=== PATIENT | male | born 1985 | race Caucasian/White ===

== ENCOUNTER → 2017-02-28 | Outpatient (CLI) | payer OTHER ==
[2017-02-28 14:58] LABS: ALT 32 U/L (21-72); AST 28 U/L (17-59); Cholesterol 126 mg/dL (<200); Glucose 93 mg/dL (74-99); HDL Cholesterol 41 mg/dL (40-60); Triglycerides 73 mg/dL (<150)
[2017-02-28 17:01] LABS: Hemoglobin A1C 6.6 % (4.2-6.1)
== END | disposition home or self-care (01) ==
LOC: LABWHC1 13:58
PROVIDERS: ATTEND Internal Medicine Cardiovascular Disease
DX: E78.2 Mixed hyperlipidemia (principal)
CPT/HCPCS: 36415; 80061; 82947; 83036; 84450; 84460

== ENCOUNTER → 2022-09-01 | Outpatient (CLI) | payer OTHER ==
[2022-09-01 22:26] LABS: ALT 61 U/L (10-49); AST 50 U/L (14-35); African American GFR (CKD) 130.7 (60.0-200.0); Albumin 4.5 g/dL (3.8-4.9); Albumin/Globulin Ratio 2.11 (1.60-3.17); Alkaline Phosphatase 84 U/L (41-126); Bilirubin, Conjugated <0.20 mg/dL (0.20-0.40); Blood Urea Nitrogen 11.8 mg/dL (9.0-27.0); Carbon Dioxide 24.9 mmol/L (20.0-27.5); Chloride 99 mmol/L (96-109); Globulin 2.1 g/dL (1.6-3.3); Non-African American GFR(CKD) 112.8 (60.0-200.0); Potassium 4.8 mmol/L (3.5-5.5); Sodium 136 mmol/L (135-145); Total Protein 6.6 g/dL (6.2-8.2)
[2022-09-01 23:05] LABS: Chol/HDL Ratio 8.63 Ratio
== END | disposition home or self-care (01) ==
LOC: LABWHC1 11:37
PROVIDERS: ATTEND Internal Medicine
DX: Z00.00 Encounter for general adult medical examination without abnormal findings (principal); I10 Essential (primary) hypertension; E11.9 Type 2 diabetes mellitus without complications; E78.5 Hyperlipidemia, unspecified
CPT/HCPCS: 36415; 80051; 80061; 80076; 82565; 83036; 83721; 84520

== ENCOUNTER → 2023-08-04 | Outpatient (CLI) | payer OTHER ==
[2023-08-04 15:52] LABS: ALT 42 U/L (10-49); AST 39 U/L (14-35); Albumin 4.6 g/dL (3.8-4.9); Albumin/Globulin Ratio 2.09 Ratio (1.60-3.17); Alkaline Phosphatase 85 U/L (41-126); Bilirubin, Conjugated <0.20 mg/dL (0.20-0.40); Bilirubin,Unconjugated >0.40 mg/dL (0.20-1.00); Blood Urea Nitrogen 11.4 mg/dL (9.0-27.0); Chloride 100 mmol/L (96-109); Chol/HDL Ratio 4.47 Ratio; Globulin 2.2 g/dL (1.6-3.3); LDL Cholesterol,Calculated 47.6 mg/dL (0.0-131.0); Potassium 4.8 mmol/L (3.5-5.5); Sodium 137 mmol/L (135-145); Total Bilirubin 0.6 mg/dL (0.3-1.2); Total Protein 6.8 g/dL (6.2-8.2)
== END | disposition home or self-care (01) ==
LOC: LABWHC1 09:20
PROVIDERS: ATTEND Internal Medicine
DX: Z00.00 Encounter for general adult medical examination without abnormal findings (principal); I10 Essential (primary) hypertension; E11.9 Type 2 diabetes mellitus without complications; E66.9 Obesity, unspecified; E78.5 Hyperlipidemia, unspecified
CPT/HCPCS: 36415; 80051; 80061; 80076; 82565; 83036; 84520

== ENCOUNTER 2024-06-21 06:09 | Observation (INO) | payer OTHER ==
--- NOTE | 2024-06-21 06:18 | ED ---
Chest Pain HPI - General Chief Complaint: Chest Pain Stated Complaint: Chest Pain Time Seen by Provider: 06/21/24 06:18 Source: patient, RN notes reviewed Mode of arrival: wheelchair Limitations: no limitations - History of Present Illness Initial Comments: This is a 39-year-old male with a past medical history of hypertension, diabetes, atherosclerosis who presents emergency department chief complaint of a pressure and pain in his mid chest with radiation to his back that started approximately 4 AM today. States that his symptoms are accompanied by intermittent chills, nausea, shortness of breath. Patient has a history of MS in 2016 but denies stent placement. Denies current blood thinner use, history of DVT or PE, recent prolonged travel, swelling in his legs or pain in his calves. Patient follows with freelance data entry, Dr. Sandoval, outpatient testing scheduled in the next 2 weeks for stress test and echo. He states that his symptoms now he will similar as when he had his MS in 2016 but states that the symptoms of nausea and abdominal pain are new for him. He takes a daily 81 mg aspirin. - Related Data Home Medications Medication Instructions Recorded Confirmed Atorvastatin [Lipitor] 40 mg PO DAILY 06/21/24 06/21/24 Fenofibrate [Lofibra] 160 mg PO DAILY 06/21/24 06/21/24 Insulin Glargine,Hum.rec.anlog 16 units SQ QAM 06/21/24 06/21/24 [Toukathryn Edward Solostar] glipiZIDE [glipiZIDE ER] 10 mg PO BID 06/21/24 06/21/24 lisinopriL [Zestril] 10 mg PO DAILY 06/21/24 06/21/24 metFORMIN HCL [Glucophage] 500 mg PO TID 06/21/24 06/21/24 Previous Rx's Medication Instructions Recorded Isosorbide Mononitrate ER [Imdur] 30 mg PO DAILY #30 tab.er.24h 01/05/16 Metoprolol Tartrate [Lopressor] 25 mg PO BID #60 tab 01/05/16 Allergies Allergy/AdvReac Type Severity Reaction Status Date / Time cefaclor [From Ceclor] Allergy Rash/Hives Verified 06/21/24 09:35 Review of Systems ROS Statement: Those systems with pertinent positive or pertinent negative responses have been documented in the HPI. ROS Other: All systems not noted in ROS Statement are negative. Past Medical History Past Medical History: Diabetes Mellitus, Hypertension Additional Past Medical History / Comment(s): OBESITY History of Any Multi-Drug Resistant Organisms: None Reported Past Surgical History: Heart Catheterization Additional Past Anesthesia/Blood Transfusion Reaction / Comment(s): NO BLOOD TRANSFUSIONS OR ANESTHESIA. Past Psychological History: No Psychological Hx Reported, Depression Past Alcohol Use History: Occasional Past Drug Use History: None Reported - Past Family History Mother Family Medical History: Hypertension Father Family Medical History: Diabetes Mellitus General Exam Limitations: no limitations Course Vital Signs 06/21/24 06/21/24 06:10 09:54 Temperature 98 F Pulse Rate 100 96 Respiratory 18 17 Rate Blood Pressure 161/85 144/69 O2 Sat by Pulse 100 98 Oximetry Chest Pain MDM - MDM Was pt. sent in by a medical professional or institution (, PA, OFFICE SUPERVISOR, urgent care, hospital, or longterm...) When possible be specific @ -No Did you speak to anyone other than the patient for history (EMS, parent, family, police, friend...)? What history was obtained from this source @ -No Did you review nursing and triage notes (agree or disagree)? Why? @ -I reviewed and agree with nursing and triage notes Were old charts reviewed (outside hosp., previous admission, EMS record, old EKG, old radiological studies, urgent care reports/EKG's, longterm records)? Report findings @ -No old charts were reviewed Differential Diagnosis (chest pain, altered mental status, abdominal pain women, abdominal pain men, vaginal bleeding, weakness, fever, dyspnea, syncope, headache, dizziness, GI bleed, back pain, seizure, CVA, palpatations, mental health, musculoskeletal)? @ -Differential Chest Pain: Stable Angina, Unstable Angina, STEMI, NSTEMI Aortic Dissection, Pneumothorax, Musculoskeletal, Esophageal Spasm GERD, Cholecystitis, Pancreatitis, Zoster, this is not meant to be an all-inclusive list. EKG interpreted by me (3pts min.). @ -618 sinus rhythm with a ventricular rate of 98, parable 151, QRS 105, QTc 394. No acute signs of ischemia. X-rays interpreted by me (1pt min.). @ -cxr negative for acute cardiopulmonary process. CT interpreted by me (1pt min.). @ -CTA chest Limited timing of the contrast bolus with a couple small filling defects seen within the left upper lobe pulmonary arterial branches for pulmonary emboli cannot be excluded with no large saddle or central embolus seen U/S interpreted by me (1pt. min.). @ -Ultrasound revealed splenomegaly with underlying hepatic steatosis What testing was considered but not performed or refused? (CT, X-rays, U/S, labs)? Why? @ -None What meds were considered but not given or refused? Why? @ -None Did you discuss the management of the patient with other professionals (professionals i.e. , PA, OFFICE SUPERVISOR, lab, RT, psych nurse, director social welfare, department sales manager, teacher, foreign policy officer, family service caseworker)? Give summary @ -I spoke with [facility] hospitalist nurse practitioner, Dariela Corbett, regard to the patient's presentation with chest pain and laboratory workup thus far and recommend that he had be admitted for cardiology consultation. Patient is accepeted for admission. Was smoking cessation discussed for >3mins.? @ -No Was critical care preformed (if so, how long)? @ -No Were there social determinants of health that impacted care today? How? (Homelessness, low income, unemployed, alcoholism, drug addiction, transportation, low edu. Level, literacy, decrease access to med. care, group home, rehab)? @ -No Was there de-escalation of care discussed even if they declined (Discuss DNR or withdrawal of care, Hospice)? DNR status @ -No What co-morbidities impacted this encounter? (DM, HTN, Smoking, COPD, CAD, Cancer, CVA, ARF, Chemo, Hep., AIDS, mental health diagnosis, sleep apnea, morbid obesity)? @ -None Was patient admitted / discharged? Hospital course, mention meds given and route, prescriptions, significant lab abnormalities, going to OR and other pertinent info. @ -admitted. 39-year-old male presents with chest pain. My evaluation the patient he is in mild distress due to pain. Vitals are stable. Pain is not reproducible in the chest however he experiences right upper quadrant abdominal pain to palpation. States that he is feeling nauseous and nurse has informed me that the patient is an episode of emesis. Initially patient is provided with a 325 mg chewable tablet of aspirin, and sublingual nitro. On reevaluation, he states that his chest pain has began to subside he is now only experiencing a tightness rather than pain. CBC unremarkable, coagulation profile reveals a elevated D-dimer at 0.80 and mild transaminitis with an AST of 280, ALT 112. Troponin nonelevated less than 0.012, amylase and lipase within normal limits, elevated bilirubin at 1.9. Patient will be evaluated via CTA of the chest for elevated D-dimer and chest pain and shortness of breath. Additionally he will be sent for ultrasound imaging of the abdomen. On discussion with the patient he denies known history of elevated liver enzymes or diagnosis of fatty liver disease. Denies excessive alcohol use or Tylenol use. Patient will be started on low intensity statin with concern for possible left upper lobe pulmonary arterial branch deficits and will be admitted to internal medicine with cardiology on consult for chest pain. Echocardiogram ordered and trend p atient's cardiac enzymes. discussed with Dr. Steele Undiagnosed new problem with uncertain prognosis? @ -No Drug Therapy requiring intensive monitoring for toxicity (Heparin, Nitro, Ins ulin, Cardizem)? @ -No Were any procedures done? @ -No Diagnosis/symptom? @ -chest pain responsive to nitro, possible pulmonary filing arterial deficit, fatty liver disease Acute, or Chronic, or Acute on Chronic? @ -acute Uncomplicated (without systemic symptoms) or Complicated (systemic symptoms)? @ -complicated Side effects of treatment? @ -No Exacerbation, Progression, or Severe Exacerbation? @ -No Poses a threat to life or bodily function? How? (Chest pain, [place], MS, pneumonia, PE, COPD, DKA, ARF, appy, cholecystitis, CVA, Diverticulitis, Homicidal, Suicidal, threat to staff... and all critical care pts) @ -Yes, untreated ACS can lead to multiorgan system dysfunction and possible Disposition Clinical Impression: Chest pain Disposition: ADMITTED IP TO THIS HOSP Condition: Stable Decision to Admit Reason: Admit from EC Decision Date: 06/21/24 Decision Time: 09:38
[2024-06-21] MEDS: ASPIRIN 325 MG TAB PO STA (06:36)
[2024-06-21] MEDS: NITROGLYCERIN SL TABS 0.4 MG TAB SUBLINGUAL STA ×3 (06:36→06:51)
[2024-06-21 06:38] LABS: Basophils % (A) 0 %; Eosinophils # (A) 0.1 k/uL (0-0.7); Eosinophils % (A) 1 %; HCT 45.8 % (39.0-53.0); HGB 15.2 gm/dL (13.0-17.5); Lymphocytes % (A) 9 %; MCH 28.6 pg (25.0-35.0); MCHC 33.1 g/dL (31.0-37.0); MCV 86.3 fL (80.0-100.0); Mean Platelet Volume 7.9; Monocytes # (A) 0.2 k/uL (0-1.0); Monocytes % (A) 2 %; Neutrophils # (A) 9.8 k/uL (1.3-7.7); Neutrophils % (A) 87 %; Platelet Count 231 k/uL (150-450); RBC 5.31 m/uL (4.30-5.90); WBC 11.2 k/uL (3.8-10.6)
[2024-06-21] MEDS: ONDANSETRON 4 MG/2 ML VIAL IVP STA (06:49)
[2024-06-21 06:58] LABS: ALT 112 U/L (4-49); AST 280 U/L (17-59); African American GFR (CKD) >90 (>60 ml/min/1.73 sqM); Albumin 4.6 g/dL (3.5-5.0); Alkaline Phosphatase 86 U/L (38-126); Amylase 46 U/L (30-110); Anion Gap 11 mmol/L; Blood Urea Nitrogen 18 mg/dL (9-20); Calcium 9.8 mg/dL (8.4-10.2); Carbon Dioxide 24 mmol/L (22-30); Chloride 101 mmol/L (98-107); Glucose 202 mg/dL (74-99); Lipase 125 U/L (23-300); Magnesium 1.5 mg/dL (1.6-2.3); Non-African American GFR(CKD) >90 (>60 ml/min/1.73 sqM); Potassium 4.5 mmol/L (3.5-5.1); Sodium 136 mmol/L (137-145); Total Bilirubin 1.9 mg/dL (0.2-1.3); Total Protein 7.1 g/dL (6.3-8.2)
[2024-06-21 07:02] LABS: INR 0.9 (<1.2); Partial Thromboplastin Time 21.2 sec (22.0-30.0); Prothrombin Time 10.4 sec (10.0-12.5)
[2024-06-21 07:06] LABS: NT-Pro-B-Type Natriuretic Pept 43 pg/mL
--- NOTE | 2024-06-21 07:52 | XR ---
EXAMINATION TYPE: XR chest 2V DATE OF EXAM: 06/21/2024 COMPARISON: NONE HISTORY: Chest pain TECHNIQUE: Frontal and lateral views of the chest are obtained. FINDINGS: There is no focal air space opacity. No evidence for pneumothorax. No pleural effusion. The cardiac silhouette size is within normal limits. The osseous structures are grossly intact. IMPRESSION: 1. No acute cardiopulmonary process. [facility], , 06/21/2024 7:50 AM
--- NOTE | 2024-06-21 08:01 | CT ---
EXAMINATION TYPE: CT chest angio for PE DATE OF EXAM: 06/21/2024 COMPARISON: None HISTORY: pe CT DLP: 1023.1 mGycm CONTRAST: CT chest with contrast and 3D reconstruction with MIP imaging is performed with IV Contrast, patient injected with 100 mL of Isovue 370. Contrast-enhanced CT of the chest was performed through the course of the pulmonary arteries with jareth g and mediastinal window settings submitted. 3D reconstruction with MIP imaging was also performed. PULMONARY ARTERIES: Examination is limited by limited timing of the contrast bolus. There are couple small filling defects seen within left upper lobe pulmonary arterial branches for which I cannot excl ude small pulmonary emboli. Correlate clinically. No large saddle embolus or central embolus is seen. LUNGS: The lungs are clear and free of infiltrate. No evidence for atelectasis. No pulmonary nodule or mass is detected. No pleural effusion. MEDIASTINUM: Thoracic aorta is of normal caliber,however, evaluation is limited given timing of the contrast bolus. If there is concern for thoracic aortic pathology consider SARITHA. Correlate clinicall y . The heart is not enlarged. No evidence for mediastinal mass. No mediastinal lymph nodes greater than 1cm. HILAR STRUCTURES: No evidence for mass. No hilar lymph nodes greater than 1 cm. UPPER ABDOMEN: No significant abnormality is seen. IMPRESSION: 1. Examination is limited by limited timing of the contrast bolus. There are couple small filling de fects seen within left upper lobe pulmonary arterial branches for which I cannot exclude small pulmon hanh emboli. Correlate clinically. No large saddle embolus or central embolus is seen. [facility], , 06/21/2024 7:59 AM
--- NOTE | 2024-06-21 08:33 | US ---
EXAMINATION TYPE: US abdomen complete DATE OF EXAM: 06/21/2024 COMPARISON: CT 2023 CLINICAL INDICATION: Male, 39 years old with history of RUQ ab pain, nausea, elevated LFTs; TECHNIQUE: Grayscale and color Doppler imaging of the abdomen was performed. FINDINGS: EXAM MEASUREMENTS: Liver Length: 19.5 cm Gallbladder Wall: 0.3 cm CBD: 0.5 cm Spleen: 12.5 cm Right Kidney: 12.8 x 6.5 x 7.0 cm Left Kidney: 12.9 x 6.6 x 6.5 cm Difficult and limited study due to patient body habitus Pancreas: obscured by overlying midline bowel gas Liver: enlarged, attenuating, heterogeneous Gallbladder: borderline hydropic with borderline thickened wall Evidence for sonographic Reina's sign: no CBD: visualized portions wnl, limited by overlying bowel gas Spleen: wnl Right Kidney: wnl Left Kidney: wnl Upper IVC: wnl Abd Aorta: prox and mid portions obscured by overlying midline bowel gas, distal portion appears wnl The intrahepatic portion of the IVC and proximal abdominal aorta are within normal limits. There is no evidence of cholelithiasis. Common bile duct is unremarkable. The visualized portions of the kenny creas are homogenous. The spleen is unremarkable. Kidneys are symmetric and free of hydronephrosis. No renal lesions are seen. IMPRESSION: 1. Hepatomegaly with underlying hepatic steatosis. [facility], , 06/21/2024 8:30 AM
[2024-06-21] MEDS: HEPARIN SOD,PORK IN 0.45% NACL 25,000 UNIT in 0.45% NACL 1 250ML.BAG IV SCH (09:01)
[2024-06-21] MEDS: HEPARIN SODIUM 1,000 UN/ML (10ML VL) IV ONE (09:01)
[2024-06-21] MEDS ORDERED: NALOXONE 0.4 MG/ML 1 ML VIAL IV PRN (09:35)
[2024-06-21] MEDS ORDERED: ONDANSETRON 4 MG/2 ML VIAL IVP PRN (09:35)
[2024-06-21] MEDS ORDERED: MORPHINE SULFATE 4 MG/ML SYRINGE IV PRN (09:35)
--- NOTE | 2024-06-21 09:53 | P.HPIM ---
History of Present Illness History of present illness; 39-year-old male with a past medical history of hypertension, diabetes, hyperlipidemia presents with chest pain that started earlier this morning. Patient reports the chest pain was accompanied by interm ittent chills, nausea, and shortness of breath. Patient reports he has a history of OR in 2016 but denies having any stent placement. Patient also denies any current use of blood thinners, any history of DVT or PE, any recent prolonged travel, or swelling in his legs or pain in his calves. Patient reports he follows with children's tutor nursery Dr. Fermin and was scheduled for an appointment in 2 weeks for stress test and echo. Patient reports the symptoms are similar to when he had his first OR in 2016 with the only difference being that he now also has nausea and abdominal pain which is new for him. Patient reports he takes aspirin 81 mg daily. Initial lab work done in the ER significant for WBC 11.2, hemoglobin 15.2, neutrophils 9.8, APTT 21.2, D-dimer 0.8, sodium 136, potassium 4.5, glucose 202, magnesium 1.5, total bili 1.9, AST 280, ALT 112, troponins less than 0.012, BNP 43. EKG done in the ER showed heart rate of 98, DE interval of 141, QT 339, SNR, no ST segment elevation or depression seen, no T-wave inversions seen. Chest x-ray done in the ER showed no acute cardiopulmonary process. Chest CTA limited by timing of the contrast bolus. A couple small filling defects seen within left upper lobe pulmonary arterial branches for which she cannot be excluded that there are small pulmonary emboli. No large saddle embolus or central embolus is seen. While in the ED patient received one-time dose of aspirin 325 mg once, 3 doses of nitroglycerin tab 0.4 mg sublingual, and was started on heparin drip IV 6.999 units/kg/h. Patient admitted to internal medicine service REVIEW OF SYSTEMS: CONSTITUTIONAL: No fever, no malaise, no fatigue. HEENT: No recent visual problems or hearing problems. Denied any sore throat. CARDIOVASCULAR: No orthopnea, PND, no palpitations, no syncope. Admits to chest pain. PULMONARY: No cough, no hemoptysis. Admits to shortness of breath. GASTROINTESTINAL: No diarrhea, no vomiting, admits to nausea and abdominal pain. NEUROLOGICAL: No headaches, no weakness, no numbness. HEMATOLOGICAL: Denies any bleeding or petechiae. GENITOURINARY: Denies any burning micturition, frequency, or urgency. MUSCULOSKELETAL/RHEUMATOLOGICAL: Denies any joint pain, swelling, or any muscle pain. ENDOCRINE: Denies any polyuria or polydipsia. The rest of the 14-point review of systems is negative. PHYSICAL EXAMINATION: GENERAL: The patient is alert and oriented x3, not in any acute distress. Well developed, well nourished. HEENT: Pupils are round and equally reacting to light. EOMI. No scleral icterus. No conjunctival pallor. Normocephalic, atraumatic. No pharyngeal erythema. No thyromegaly. CARDIOVASCULAR: S1 and S2 present. No murmurs, rubs, or gallops. PULMONARY: Chest is clear to auscultation, no wheezing or crackles. ABDOMEN: Soft, nontender, nondistended, normoactive bowel sounds. No palpable organomegaly. MUSCULOSKELETAL: No joint swelling or deformity. EXTREMITIES: No cyanosis, clubbing, or pedal edema. NEUROLOGICAL: Gross neurological examination did not reveal any focal deficits. SKIN: No rashes. Assessment:39-year-old male with a past medical history of hypertension, diabetes, hyperlipidemia presents with chest pain that started earlier this morning. Patient is being worked up to rule out ACS and PE. Patient is also being worked up for transaminitis. Plan: #Atypical chest pain: History of OR in 2016 without stent placement Negative tropes and BNP in the ED, EKG also shows NSR with no ST elevation Stat echo ordered Patient normally on aspirin at home Cardiology on consult, will follow-up further recommendations #Transaminitis: Patient reports he is not a big drinker, last drink was at [employer] 1 week ago. Potentially could be caused by statin use. AST 280 and ALT 112 Abdominal ultrasound shows hepatomegaly and underlying steatosis Continue to monitor #Hypertension: Will resume home blood pressure medication #Hyperlipidemia: Will resume home atorvastatin 40 mg p.o. daily and fenofibrate 160 mg p.o. daily #Diabetes mellitus: Will start patient on sliding scale and hold home metformin and insulin glargine Continue to monitor vital signs, monitor CBC, monitor CMP, continue telemetry monitoring Labs and medication were reviewed. Continue with symptomatic treatment. Resume home medication. Monitor labs and vitals. DVT and GI prophylaxis. Further recommendations as per clinical course of the patient Dictation was produced using [employer] dictation software. please excuse any grammatical, word or spelling errors. Tima confidentiality statement: "The information contained in this communication, including attachments, is confidential, may be privileged, and is intended only for the use of the named recipient(s). Unauthorized use, disclosure, forwarding or copying is strictly prohibited and may be unlawful. If you have received this communication in error, please notify me IMMEDIATELY at the phone number or pager listed above." Past Medical History Past Medical History: Diabetes Mellitus, Hypertension Additional Past Medical History / Comment(s): OBESITY History of Any Multi-Drug Resistant Organisms: None Reported Past Surgical History: Heart Catheterization Additional Past Anesthesia/Blood Transfusion Reaction / Comment(s): NO BLOOD TRANSFUSIONS OR ANESTHESIA. Past Psychological History: No Psychological Hx Reported, Depression Past Alcohol Use History: Occasional Past Drug Use History: None Reported - Past Family History Mother Family Medical History: Hypertension Father Family Medical History: Diabetes Mellitus Medications and Allergies Home Medications Medication Instructions Recorded Confirmed Type Isosorbide Mononitrate ER [Imdur] 30 mg PO DAILY #30 tab.er.24h 01/05/16 4 Rx Metoprolol Tartrate [Lopressor] 25 mg PO BID #60 tab 01/05/16 06/21/24 Rx Atorvastatin [Lipitor] 40 mg PO DAILY 06/21/24 06/21/24 History Fenofibrate [Lofibra] 160 mg PO DAILY 06/21/24 06/21/24 History Insulin Glargine,Hum.rec.anlog 16 units SQ QAM 06/21/24 06/21/24 History [Toujeo Max Solostar] glipiZIDE [glipiZIDE ER] 10 mg PO BID 06/21/24 06/21/24 History lisinopriL [Zestril] 10 mg PO DAILY 06/21/24 06/21/24 History metFORMIN HCL [Glucophage] 500 mg PO TID 06/21/24 06/21/24 History Allergies Allergy/AdvReac Type Severity Reaction Status Date / Time cefaclor [From Ceclor] Allergy Rash/Hives Verified 06/21/24 09:35 Physical Exam Vitals: Vital Signs Temp Pulse Resp BP Pulse Ox 06/21/24 06:10 98 F 100 18 161/85 100 Intake and Output 06/20/24 06/21/24 06/21/24 22:59 06:59 14:59 Other: Weight 142.882 kg Results CBC & Chem 7: 06/21/24 06:32 06/21/24 06:32 Labs: Abnormal Lab Results - Last 24 Hours (Table) 06/21/24 06/21/24 06/21/24 Range/Units 06:32 06:32 06:32 WBC 11.2 H (3.8-10.6) k/uL Neutrophils # 9.8 H (1.3-7.7) k/uL APTT 21.2 L (22.0-30.0) sec D-Dimer 0.80 H (<0.60) mg/L FEU Sodium 136 L (137-145) mmol/L Glucose 202 H (74-99) mg/dL Magnesium 1.5 L (1.6-2.3) mg/dL Total Bilirubin 1.9 H (0.2-1.3) mg/dL AST 280 H (17-59) U/L ALT 112 H (4-49) U/L
[2024-06-21] MEDS: MAGNESIUM OXIDE 400 MG TAB PO STA (10:40)
[2024-06-21] MEDS: MAGNESIUM SULFATE-D5W PMX 1 GM in DEXTROSE/WATER 1 100ML.BAG IVPB SCH (12:06)
--- NOTE | 2024-06-21 13:28 | CA ---
Transthoracic Echo Report Name: Tay Duvall Age: 39 Gender: M : 1985 Exam Date: 06/21/2024 10:52 Exam Location: [facility] Ht (in): 71 Wt (lb): 315 Ordering Physician: Sil Monroy Attending/Referring Phys: [employer]unch Out Crew Member Augustina Bravo RDCS Procedure CPT: Indications: Chest Pain Cardiac Hx: Technical Quality: Technically difficult study Contrast 1: Definity Total Dose (mL): 2 Contrast 2: Total Dose (mL): MEASUREMENTS (Male / Female) Normal Values 2D ECHO LV Diastolic Diameter PLAX 5.0 cm 4.2 - 5.9 / 3.9 - 5.3 cm LV Systolic Diameter PLAX 3.6 cm IVS Diastolic Thickness 0.8 cm 0.6 - 1.0 / 0.6 - 0.9 cm LVPW Diastolic Thickness 1.3 cm 0.6 - 1.0 / 0.6 - 0.9 cm LV Relative Wall Thickness 0.4 LVOT Diameter 2.3 cm LV Diastolic Volume MOD BP 106.4 cm??? 67 - 155 / 56 - 104 cm??? LV Systolic Volume MOD BP 32.4 cm??? 22 - 58 / 19 - 49 cm??? LV Ejection Fraction MOD BP 69.6 % >= 55 % LV Cardiac Index MOD BP 2697.2 cm???/min???m??? LV Diastolic Volume MOD 4C 97.7 cm??? LV Systolic Volume MOD 4C 32.3 cm??? LV Ejection Fraction MOD 4C 66.9 % LV Cardiac Index MOD 4C 2383.7 cm???/min???m??? LV Diastolic Length 4C 8.8 cm LV Systolic Length 4C 6.8 cm LV Diastolic Volume MOD 2C 114.1 cm??? LV Systolic Volume MOD 2C 31.5 cm??? LV Ejection Fraction MOD 2C 72.4 % LV Cardiac Index MOD 2C 3010.3 cm???/min???m??? LV Diastolic Length 2C 8.6 cm LV Systolic Length 2C 6.6 cm LA Volume 43.9 cm??? 18 - 58 / 22 - 52 cm??? LA Volume Index 16.0 cm???/m??? 16 - 28 cm???/m??? Ascending Aorta Diameter 2.8 cm DOPPLER AV Peak Velocity 178.9 cm/s AV Peak Gradient 12.8 mmHg AV Mean Velocity 139.3 cm/s AV Mean Gradient 8.2 mmHg AV Velocity Time Integral 30.2 cm LVOT Peak Velocity 129.8 cm/s LVOT Peak Gradient 6.7 mmHg LVOT Velocity Time Integral 23.9 cm LVOT Stroke Volume 99.8 cm??? LVOT Stroke Volume Index 39.0 ml/m??? LVOT Cardiac Index 3639.4 cm???/min???m??? AV Area Cont Eq vti 3.3 cm??? AV Area Cont Eq pk 3.0 cm??? MV Area PHT 5.6 cm??? Mitral E Point Velocity 83.1 cm/s Mitral A Point Velocity 62.6 cm/s Mitral E to A Ratio 1.3 MV Deceleration Time 134.8 ms PV Peak Velocity 97.3 cm/s PV Peak Gradient 3.8 mmHg FINDINGS Left Ventricle Left ventricular ejection fraction is estimated at 60-65 %. Left ventricular cavity size normal. Left ventricular wall thickness normal. No obvious regional wall motion abnormalities. Mild concentric LVH Right Ventricle Right ventricle not well visualized. Unable to estimate the right ventricular systolic pressure. Right Atrium Right atrium not well visualized. Left Atrium Normal left atrial size. Mitral Valve Structurally normal mitral valve. No mitral stenosis, regurgitation or prolapse. Aortic Valve Trileaflet aortic valve. No aortic valve stenosis or regurgitation. Tricuspid Valve Structurally normal tricuspid valve. No tricuspid stenosis, regurgitation or prolapse. Pulmonic Valve Pulmonic valve not well visualized. No pulmonic stenosis. No pulmonic regurgitation. Pericardium No pericardial effusion. Aorta Normal size aortic root and proximal ascending aorta. CONCLUSIONS Left ventricular ejection fraction is estimated at 60-65 %. No obvious regional wall motion abnormalities. Mild concentric LVH No significant valve dysfunction Previewed by: Dr En Triplett (Electronically Signed) Final Date: 21 June 2024 13:28
[2024-06-21] MEDS ORDERED: DEXTROSE 50% SYRINGE 50 ML IVP PRN ×2 (15:17)
[2024-06-21 16:08] LABS: ALT 277 U/L (4-49); AST 553 U/L (17-59); African American GFR (CKD) >90 (>60 ml/min/1.73 sqM); Albumin 4.5 g/dL (3.5-5.0); Albumin/Globulin Ratio 1.7; Alkaline Phosphatase 82 U/L (38-126); Anion Gap 10 mmol/L; Blood Urea Nitrogen 12 mg/dL (9-20); Calcium 9.8 mg/dL (8.4-10.2); Carbon Dioxide 26 mmol/L (22-30); Chloride 98 mmol/L (98-107); Globulin 2.6 g/dL; Glucose 244 mg/dL (74-99); Non-African American GFR(CKD) >90 (>60 ml/min/1.73 sqM); Sodium 134 mmol/L (137-145); Total Bilirubin 3.4 mg/dL (0.2-1.3); Total Protein 7.1 g/dL (6.3-8.2)
[2024-06-21] MEDS: HEPARIN SODIUM 1,000 UN/ML (10ML VL) IV PRN (16:18)
[2024-06-21 17:23] LABS: Glucose,Whole Blood 209 mg/dL (70-110)
[2024-06-21] MEDS: INSULIN ASPART (NovoLOG) 100 UNIT/ML VIAL SQ SCH (17:37)
[2024-06-21 19:55] LABS: Glucose,Whole Blood 213 mg/dL (70-110)
[2024-06-21] MEDS: ACETAMINOPHEN TAB 325 MG TAB PO PRN (20:12)
[2024-06-21] MEDS: METOPROLOL TARTRATE 25 MG TAB PO SCH (20:12)
[2024-06-22 05:54] LABS: Glucose,Whole Blood 204 mg/dL (70-110)
[2024-06-22 06:28] LABS: INR 1.1 (<1.2); Prothrombin Time 11.7 sec (10.0-12.5)
[2024-06-22] MEDS: PANTOPRAZOLE 40 MG/10 ML VIAL IV SCH (09:15)
[2024-06-22] MEDS: ISOSORBIDE MONONITRATE ER 30 MG TAB.ER.24H PO SCH (09:15)
[2024-06-22] MEDS: lisinopriL 10 MG TAB PO SCH (09:15)
--- NOTE | 2024-06-22 09:44 | P.PN ---
Subjective Subjective: 06/22/2024: Patient seen at bedside. No significant overnight events. Patient reports he is feeling better than yesterday, has some intermittent right upper quadrant pain that comes and goes, sharp in nature. Pertinent positives and negatives discussed above, a complete review of systems was preformed and all the other sytems were negative. Vitals Signs Reveiwed. General: Obese, non toxic, no distress, appears at stated age, normal weight Derm: no unusual rashes/lesions, warm Head: atraumatic, normocephalic, symmetric Eyes: EOMI, no lid lag, anicteric sclera, pupils equal round reactive to light ENT: Nose and ears atraumatic Neck: No cervical lymphadenopathy, trachea midline, supple Mouth: no lip lesion, mucus membranes moist Cardiovascular: S1S2 reg, no murmur, positive dorsalis pedis pulse bilateral, no edema Lungs: Decreased air entry bilaterally, no rhonchi, no rales, no accessory muscle use Abdominal: soft, nontender to palpation, no guarding Ext: muscle strength 5 out of 5 in all 4 extremities grossly, no gross muscle atrophy, no contractures, Neuro: CN II-XI grossly intact, no gross focal neuro deficits Psych: Alert, oriented, appropriate affect Data Reveiwed Today: Patient Labs: Sodium 134, hemoglobin A1c 9.7, bilirubin 4.4, AST 296, ALT 281, alkaline phosphatase 97, ammonia less than 9 Imaging: Echo done yesterday showed EF of 60 to 65%, no wall motion abnormalities, mild concentric LVH, no significant valve dysfunction. Assessment:39-year-old male with a past medical history of hypertension, diabetes, hyperlipidemia presents with chest pain that started earlier this morning. Patient is being worked up to rule out ACS and PE. Patient is also being worked up for transaminitis. Plan: #Atypical chest pain: History of [place] in 2016 without stent placement, potentially PE based on CT findings Negative tropes and BNP in the ED, EKG also shows NSR with no ST elevation Echo showed EF of 60 to 65% Patient normally on aspirin at home Discontinued heparin drip Cardiology on consult, will follow-up further recommendations #Transaminitis: Patient reports he is not a big drinker, last drink was at [employer] [facility] 1 week ago. Potentially could be caused by statin use. Potentially biliary versus viral versus drug side effect versus autoimmune. AST 280 and ALT 112, recheck of AST increased to 533 and ALT 277, pending labs from today Abdominal ultrasound shows hepatomegaly and underlying steatosis Ordered hepatitis panel, IgG titer, iron panel, AREN, ammonia, GGT, daily CMP and INR Ordered duplex ultrasound of the liver, MRCP, CT with contrast Will consult surgery if imaging is positive Continue to monitor #Hypertension: Continue home blood pressure medication #Hyperlipidemia: Continue to hold home statin and fenofibrate, in the context of suspecting st atin induced liver injury #Diabetes mellitus: Sliding scale per protocol F none E magnesium N heart healthy diet A normally ambulates at home without assistance DVT ppx: Heparin drip Code Status: Full code Dispo: Pending clinical course Anticipated discharge place: To home Anticipated discharge time: Pending clinical course Attestation I have seen and examined this patient with my resident , discussed the same with the resident/YAQUELIN, and agree with the dictator's assessment and plan as written GENERAL: The patient is alert and oriented x3, not in any acute distress. Well developed, well nourished. HEENT: Pupils are round and equally reacting to light. EOMI. scleral icterus se en no conjunctival pallor. Normocephalic, atraumatic. No pharyngeal erythema. No thyromegaly. CARDIOVASCULAR: S1 and S2 present. No murmurs, rubs, or gallops. PULMONARY: Chest is clear to auscultation, no wheezing or crackles. ABDOMEN: Soft, tenderness right upper quadrant. No shifting dullness or fluid thrill MUSCULOSKELETAL: No joint swelling or deformity. EXTREMITIES: No cyanosis, clubbing, or pedal edema. NEUROLOGICAL: Gross neurological examination did not reveal any focal deficits. SKIN: No rashes. Dr. Trav crawford Objective - Vital Signs Vital signs: Vital Signs Temp 100.3 F H 06/22/24 07:00 Pulse 88 06/22/24 07:00 Resp 16 06/22/24 07:00 BP 120/76 06/22/24 07:00 Pulse Ox 94 L 06/22/24 07:00 FiO2 Intake & Output 06/21/24 06/22/24 06/22/24 18:59 06:59 18:59 Intake Total 670.833 177.167 Balance 670.833 177.167 Weight 142.882 kg Intake: Intake, IV Titration 72.833 177.167 Amount Heparin Sod,Pork in 0.45% 72.833 177.167 NaCl 25,000 unit In 0.45 % NaCl 1 250ml.bag @ 6. 999 UNITS/KG/HR 10 mls/hr IV .Q24H [facility] Rx#: [id number] Oral 598 0 Other: Voiding Method Toilet Toilet # Voids 2 2 - Labs CBC & Chem 7: 06/22/24 05:59 06/22/24 05:59 Labs: Abnormal Lab Results - Last 24 Hours (Table) 06/21/24 06/21/24 06/21/24 Range/Units 14:58 17:21 19:53 APTT (22.0-30.0) sec Sodium 134 L (137-145) mmol/L Glucose 244 H (74-99) mg/dL POC Glucose (mg/dL) 209 H 213 H (70-110) mg/dL Total Bilirubin 3.4 H (0.2-1.3) mg/dL AST 553 H (17-59) U/L ALT 277 H (4-49) U/L 06/21/24 06/22/24 Range/Units 23:39 05:53 APTT 30.3 H (22.0-30.0) sec Sodium (137-145) mmol/L Glucose (74-99) mg/dL POC Glucose (mg/dL) 204 H (70-110) mg/dL Total Bilirubin (0.2-1.3) mg/dL AST (17-59) U/L ALT (4-49) U/L
[2024-06-22 10:02] LABS: Basophils # (A) 0.04 X 10*3/uL (0.00-0.10); Basophils % (A) 0.5 %; Eosinophils # (A) 0.15 X 10*3/uL (0.04-0.35); Eosinophils % (A) 1.7 %; HCT 41.9 % (39.6-50.0); Lymphocytes # (A) 0.75 X 10*3/uL (0.90-5.00); Lymphocytes % (A) 8.5 %; MCH 28.7 pg (27.0-32.0); MCHC 33.4 g/dL (32.0-37.0); Mean Platelet Volume 11.6 FL (9.5-12.2); Monocytes # (A) 0.74 X 10*3/uL (0.20-1.00); Monocytes % (A) 8.4 %; NRBC Per 100 WBC 0 X 10*3/uL (0.00-0.01); Neutrophils # (A) 7.13 X 10*3/uL (1.80-7.70); Neutrophils % (A) 80.7 %; Platelet Count 225 X 10*3/uL (140-440); RBC 4.87 X 10*6/uL (4.40-5.60); RDW 12.7 % (11.5-14.5); WBC 8.83 X 10*3/uL (4.50-10.00)
[2024-06-22 10:11] LABS: ALT 281 U/L (10-49); AST 296 U/L (14-35); Albumin 4.3 g/dL (3.8-4.9); Albumin/Globulin Ratio 1.95 Ratio (1.60-3.17); Alkaline Phosphatase 97 U/L (41-126); BUN/Creat Ratio 12.88 Ratio (12.00-20.00); Blood Urea Nitrogen 10.3 mg/dL (9.0-27.0); Calcium 8.8 mg/dL (8.7-10.3); Carbon Dioxide 21.9 mmol/L (21.6-31.8); Chloride 100 mmol/L (96-109); Globulin 2.2 g/dL (1.6-3.3); Glucose 206 mg/dL (70-110); Potassium 4.2 mmol/L (3.5-5.5); Sodium 134 mmol/L (135-145); Total Bilirubin 4.4 mg/dL (0.3-1.2); Total Protein 6.5 g/dL (6.2-8.2)
--- NOTE | 2024-06-22 11:53 | P.CRDCN ---
History of Present Illness Consult date: 06/22/24 Consult reason: chest pain History of present illness: This is a 39-year-old male patient of Dr. Theresa Sandoval with past medical history of coronary artery disease, hypertension, dyslipidemia, diabetes. We have been asked to evaluate the patient for chest pain. Patient gives history that he developed pains in the right side of his chest that went across his chest to the left side and also from the right side down to his low rib area. He also has radiation of the pain to his shoulder blade. He stated woke him from a sleep around 4 AM. He also noted to have some shortness of breath, increased heart rate, nausea. He states he checked a pulse ox at home and his pulse ox was less than 90 and his heart rate was over 100. Patient was given nitroglycerin and he thinks it alleviated some of his pain initially 56 out of 10 and reduced to 2 out of 10. He states he has no chest pain today but he does have some pain in the right lower rib area that is on and off this morning for about 10 minutes. He complains of abdominal bloating and belching. Patient had 1 episode of vomiting after nitroglycerin in the emergency center. Blood pressure 120/76, heart rate 88, pulse ox 94% on room air, temperature max 100.3. Patient has been started on a heparin drip. Patient was last seen in the office on 06/12/2024 plan was to schedule him for a treadmill stress test and work on risk factor modification including weight loss and exercise, diet. EKG: Sinus rhythm with no acute ST-T wave changes Chest x-ray: No acute process Abdominal ultrasound: Hepatomegaly with underlying hepatic steatosis CTA of the chest is limited by limited timing of the contrast bolus. There are couple small filling defects seen within the left upper lobe pulmonary artery branches for which small pulmonary emboli cannot be excluded. No large saddle embolus or central embolus seen. Echocardiogram reveals EF of 60 to 65%. No obvious regional wall motion abno rmalities. Mild concentric left ventricular hypertrophy. No significant valve dysfunction. Laboratory studies: Initial WBC 11.2 now 8.8, hemoglobin 14. D-dimer 0.8. Sodium 134, potassium 4.2, creatinine 0.8. Elevated liver function test with total bilirubin 4.4, AST 296 down from 553, ALT 281. Troponin negative x 2. proBNP 43. Lipase 125. Home cardiac medications: Atorvastatin 40 mg daily, fenofibrate 160 mg daily, Imdur 30 mg daily, lisinopril 10 mg daily, Lopressor 25 mg twice daily Cardiac catheterization performed 2016 revealed 30 to 40% stenosis involving the proximal LAD with plan for medical management. Review Of Systems: At the time of my exam: CONSTITUTIONAL: Denies fever or chills. HEENT: Denies blurred vision, vision changes, or eye pain. Denies hemoptysis CARDIOVASCULAR: Denies chest pain. Denies orthopnea. Denies PND. Denies palpitations RESPIRATORY: Denies shortness of breath. GASTROINTESTINAL: Denies abdominal pain. Denies nausea or vomiting. HEMATOLOGIC: Denies bleeding disorders. GENITOURINARY: Denies any blood in urine. SKIN: Denies puritis. Denies rash. Physical examination: Gen: This is a 39-year-old morbidly obese male in no acute distress VS: reviewed HEENT: Head is atraumatic, normocephalic. Pupils equal, round. Sclerae is anicteric. NECK: Supple. No JVD. LUNGS: Clear to auscultation. No wheezes or rhonchi. No intercostal retractions. HEART: Regular rate and rhythm. No murmur. ABDOMEN: Soft tenderness right upper quadrant EXTREMITIES: No pedal edema. No calf tenderness. NEUROLOGICAL: Patient is awake, alert and oriented x3. Assessment: Atypical chest pain, acute coronary syndrome ruled out History of coronary artery disease as above Abdominal symptoms with pain, bloating, belching and elevated liver function test and low-grade fever Hypertension Dyslipidemia Diabetes mellitus type 2 Morbid obesity with BMI of 43 Plan: Resume patient's home cardiac medications May hold Lipitor Symptoms do not seem to correlate with pulmonary embolism. Patient may discontinue heparin drip if cleared by medicine No plan for any further cardiac workup at this time and patient is cleared for discharge. Thank you kindly for this consultation. Nurse practitioner note has been reviewed, I agree with documented findings and plan of care. Patient was seen and examined. Past Medical History Past Medical History: Diabetes Mellitus, Hypertension, Myocardial Infarction (ND) Additional Past Medical History / Comment(s): OBESITY, [place] 2016 Last Myocardial Infarction Date:: 2015 History of Any Multi-Drug Resistant Organisms: None Reported Past Surgical History: Heart Catheterization Past Anesthesia/Blood Transfusion Reactions: No Reported Reaction Additional Past Anesthesia/Blood Transfusion Reaction / Comment(s): NO BLOOD TRANSFUSIONS OR ANESTHESIA. Past Psychological History: No Psychological Hx Reported, Depression Smoking Status: Never smoker Past Alcohol Use History: Occasional Past Drug Use History: None Reported - Past Family History Mother Family Medical History: Hypertension Father Family Medical History: Diabetes Mellitus Medications and Allergies Home Medications Medication Instructions Recorded Confirmed Type Isosorbide Mononitrate ER [Imdur] 30 mg PO DAILY #30 tab.er.24h 01/05/16 4 Rx Metoprolol Tartrate [Lopressor] 25 mg PO BID #60 tab 01/05/16 06/21/24 Rx Atorvastatin [Lipitor] 40 mg PO DAILY 06/21/24 06/21/24 History Fenofibrate [Lofibra] 160 mg PO DAILY 06/21/24 06/21/24 History Insulin Glargine,Hum.rec.anlog 16 units SQ QAM 06/21/24 06/21/24 History [Toujeo Max Solostar] glipiZIDE [glipiZIDE ER] 10 mg PO BID 06/21/24 06/21/24 History lisinopriL [Zestril] 10 mg PO DAILY 06/21/24 06/21/24 History metFORMIN HCL [Glucophage] 500 mg PO TID 06/21/24 06/21/24 History Allergies Allergy/AdvReac Type Severity Reaction Status Date / Time cefaclor [From [facility]] Allergy Rash/Hives Verified 06/21/24 09:35 Physical Exam Vitals: Vital Signs Temp Pulse Pulse Resp BP BP Pulse Ox 06/22/24 08:00 16 06/22/24 07:00 100.3 F H 88 16 120/76 94 L 06/22/24 01:45 98.9 F 85 18 128/65 98 06/21/24 20:00 100.2 F H 84 18 124/78 98 06/21/24 13:30 98.3 F 90 16 129/84 98 06/21/24 12:19 92 14 138/70 98 Intake and Output 06/21/24 06/22/24 06/22/24 22:59 06:59 14:59 Intake Total 552.833 177.167 Balance 552.833 177.167 Intake: Intake, IV Titration 72.833 177.167 Amount Heparin Sod,Pork in 0.45% 72.833 177.167 NaCl 25,000 unit In 0.45 % NaCl 1 250ml.bag @ 6. 999 UNITS/KG/HR 10 mls/hr IV .Q24H [facility] Rx#: [id number] Oral 480 0 Other: Voiding Method Toilet Toilet # Voids 1 2 Weight 142.882 kg Results 06/22/24 05:59 06/22/24 05:59 Cardiac Enzymes 06/21/24 06/22/24 Range/Units 14:58 05:59 AST 553 H 296 H (17-59) U/L Coagulation 06/21/24 06/21/24 06/22/24 Range/Units 14:58 23:39 05:59 PT 11.7 (10.0-12.5) sec APTT 24.6 30.3 H 30.0 (22.0-30.0) sec CBC 06/22/24 Range/Units 05:59 WBC 8.83 (4.50-10.00) X 10*3/uL RBC 4.87 (4.40-5.60) X 10*6/uL Hgb 14.0 (13.0-17.0) g/dL Hct 41.9 (39.6-50.0) % Plt Count 225 (140-440) X 10*3/uL Comprehensive Metabolic Panel 06/21/24 06/22/24 Range/Units 14:58 05:59 Sodium 134 L 134 L (137-145) mmol/L Potassium 5.0 4.2 (3.5-5.1) mmol/L Chloride 98 100 (98-107) mmol/L Carbon Dioxide 26 21.9 (22-30) mmol/L BUN 12 10.3 (9-20) mg/dL Creatinine 0.79 0.8 (0.66-1.25) mg/dL Glucose 244 H 206 H (74-99) mg/dL Calcium 9.8 8.8 (8.4-10.2) mg/dL AST 553 H 296 H (17-59) U/L ALT 277 H 281 H (4-49) U/L Alkaline Phosphatase 82 97 (38-126) U/L Total Protein 7.1 6.5 (6.3-8.2) g/dL Albumin 4.5 4.3 (3.5-5.0) g/dL Current Medications Generic Name Dose Route Start Last Admin Trade Name Freq PRN Reason Stop Dose Admin Acetaminophen 650 mg 06/21/24 09:35 06/21/24 20:12 Acetaminophen Tab 325 Mg Tab PO 650 mg Q6HR PRN Administration Mild Pain or Fever > 100.5 Dextrose/Water 25 ml 06/21/24 15:17 Dextrose 50% Syringe 50 Ml IVP PER PROTOCOL PRN Hypoglycemia Protocol Dextrose/Water 50 ml 06/21/24 15:17 Dextrose 50% Syringe 50 Ml IVP PER PROTOCOL PRN Hypoglycemia Protocol Heparin Sodium (Porcine) 0 unit 06/21/24 08:41 06/22/24 06:37 Heparin Sodium 1,000 Un/Ml (10ml Vl) IV 4,000 unit PER PROTOCOL PRN Administration Low PTT Protocol Heparin Sodium/Sodium Chloride 250 mls @ 10 mls/hr 06/21/24 08:45 06/22/24 06:38 25,000 unit/ Sodium Chloride IV 15.99 units/kg/hr .Q24H [facility] 22.847 mls/hr Administration Protocol 6.999 UNITS/KG/HR Insulin Aspart 0 unit 06/21/24 17:30 06/22/24 06:19 Insulin Aspart (Novolog) 100 Unit/Ml Vial SQ 4 unit ACHS [facility] Administration Protocol Isosorbide Mononitrate 30 mg 06/22/24 09:00 06/22/24 09:15 Isosorbide Mononitrate Er 30 Mg Tab.Er.24h PO 30 mg DAILY [facility] Administration Lisinopril 10 mg 06/22/24 09:00 06/22/24 09:15 Lisinopril 10 Mg Tab PO 10 mg DAILY [facility] Administration Metoprolol Tartrate 25 mg 06/21/24 21:00 06/22/24 09:15 Metoprolol Tartrate 25 Mg Tab PO 25 mg BID [facility] Administration Morphine Sulfate 4 mg 06/21/24 09:35 Morphine Sulfate 4 Mg/Ml Syringe IV Q4HR PRN Severe Pain (Scale 7 to 10) Naloxone HCl 0.2 mg 06/21/24 09:35 Naloxone 0.4 Mg/Ml 1 Ml Vial IV Q2M PRN Opioid Reversal Ondansetron HCl 4 mg 06/21/24 09:35 Ondansetron 4 Mg/2 Ml Vial IVP Q8HR PRN Nausea And Vomiting Pantoprazole Sodium 40 mg 06/22/24 09:00 06/22/24 09:15 Pantoprazole 40 Mg/10 Ml Vial IV 40 mg DAILY [facility] Administration Intake and Output 06/21/24 06/22/24 06/22/24 22:59 06:59 14:59 Intake Total 552.833 177.167 Balance 552.833 177.167 Intake: Intake, IV Titration 72.833 177.167 Amount Heparin Sod,Pork in 0.45% 72.833 177.167 NaCl 25,000 unit In 0.45 % NaCl 1 250ml.bag @ 6. 999 UNITS/KG/HR 10 mls/hr IV .Q24H [facility] Rx#: [id number] Oral 480 0 Other: Voiding Method Toilet Toilet # Voids 1 2 Weight 142.882 kg 06/22/24 05:59 06/22/24 05:59
[2024-06-22 12:07] LABS: Glucose,Whole Blood 195 mg/dL (70-110)
--- NOTE | 2024-06-22 15:31 | CT ---
EXAMINATION TYPE: CT abdomen pelvis w con CT DLP: 2499.4 mGycm, Automated exposure control for dose reduction was used. DATE OF EXAM: 06/22/2024 2:58 PM COMPARISON: CT abdomen pelvis most recent from 06/21/2024 CLINICAL INDICATION: Male, 39 years old with history of abdominal pain; Elevated liver enzymes, abdom inal pain TECHNIQUE: Axial CT abdomen pelvis w con;Sagittal and coronal reformats were created on a separate w orkstation. Contrast used:100 mL of Isovue 370 with IV Contrast, (none if empty) Oral contrast used: without Oral Contrast (none if empty) FINDINGS: LOWER CHEST: Unremarkable ABDOMEN LIVER: Diffusely hypoattenuating parenchyma. GALLBLADDER AND BILE DUCTS: Unremarkable. PANCREAS: Unremarkable. SPLEEN: Unremarkable. ADRENAL GLANDS: Unremarkable. KIDNEYS AND URETERS: Nonobstructing calculi bilaterally up to 3 mm. No hydronephrosis. Left renal cortical probable cyst. PELVIS BLADDER: Unremarkable REPRODUCTIVE: Unremarkable. ABDOMEN & PELVIS STOMACH AND BOWEL: No evidence of bowel obstruction. The appendix is normal. PERITONEUM/RETROPERITONEUM: No evidence of pneumoperitoneum or free fluid. VASCULATURE: No evidence of aortic aneurysm. MUSCULOSKELETAL: No acute osseous abnormalities LYMPH NODES: No gross evidence for lymphadenopathy. SOFT TISSUE/ABDOMINAL WALL: Unremarkable IMPRESSION: 1. Hepatic steatosis. No evidence for acute abdominal process. 2. Bilateral nonobstructing renal calculi. [facility], , 06/22/2024 3:29 PM
--- NOTE | 2024-06-22 16:26 | US ---
EXAMINATION TYPE: US venous doppler duplex LE BI DATE OF EXAM: 06/22/2024 3:14 PM COMPARISON: NONE CLINICAL INDICATION: Male, 39 years old with history of lower extremity swelling; No hx of DVT. Patie nt takes aspirin. Swelling. SIDE PERFORMED: Bilateral TECHNIQUE: The lower extremity deep venous system is examined utilizing real time linear array sonog masoud with graded compression, color doppler sonography, and spectral doppler. VESSELS IMAGED: Common Femoral Vein Deep Femoral Vein Greater Saphenous Vein * Femoral Vein Popliteal Vein Small Saphenous Vein * Proximal Calf Veins (* superficial vessels) Right Leg: No evidence of DVT. Left Leg: No evidence of DVT. IMPRESSION: [facility], , 06/22/2024 4:23 PM
--- NOTE | 2024-06-22 16:42 | US ---
EXAMINATION TYPE: US portal vein DATE OF EXAM: 06/22/2024 COMPARISON: US 06/21/2024, CT 06/22/2024 CLINICAL INDICATION: Male, 39 years old with history of transaminitis; Transaminitis TECHNIQUE: Grayscale and color Doppler imaging of the abdomen. Spectral Doppler imaging of the portal vein was also performed. FINDINGS: EXAM MEASUREMENTS: Liver Length: 20.0 cm. Gallbladder Wall: 0.34 cm. CBD: Obscured Right Kidney: 13.6 x 6.6 x 6.6 cm. Exam is limited due to gas and patient body habitus* ANATOMY: Pancreas: Obscured Liver: Enlarged/heterogeneous with increased echogenicity and attenuation. Color flow patency within the portal vein: Color flow seen Portal Vein Flow: Hepatopetal Gallbladder: Wall measures upper limits of normal Evidence for sonographic Reina's sign: No CBD: Obscured Right Kidney: Enlarged. No hydronephrosis or masses seen Ascites noted? Not seen in RUQ *Portal vein measures 1.63 cm- ?Enlarged. IMPRESSION: 1. Portal vein appears patent and is mildly prominent in size. Correlate for portal hypertension. 2. No evidence for acute process 3. Hepatic steatosis. [facility], , 06/22/2024 4:40 PM
[2024-06-22 17:11] LABS: Glucose,Whole Blood 223 mg/dL (70-110)
[2024-06-22] MEDS: SODIUM CHLORIDE 0.9% 1,000 ML IV SCH (17:48)
[2024-06-22 20:25] LABS: Glucose,Whole Blood 187 mg/dL (70-110)
[2024-06-22 23:25] LABS: % Iron Saturation 10.68 (15.00-50.00); GGT 826 U/L (0-73); Iron 33 UG/DL (65-175); Rheumatoid Factor, Qnt <15 IU/mL (0-15); Total Iron Binding Capacity 309 UG/DL (228-460)
[2024-06-22 23:34] LABS: Hepatitis A Antibody IgM Nonreactive (Nonreactive); Hepatitis B Surface Antigen Nonreactive (Nonreactive); Hepatitis C IgG Antibody Nonreactive (Nonreactive)
[2024-06-23 05:47] LABS: Glucose,Whole Blood 167 mg/dL (70-110)
--- NOTE | 2024-06-23 05:51 | P.CON ---
Consult Note - . Consult date: 06/23/24 Assessment/Plan:: This is a 39-year-old male with a past medical history of hypertension, diabetes, atherosclerosis who presents emergency department chief complaint of a pressure and pain in his mid chest with radiation to his back. He has vague right upper quadrant pain. States that his symptoms are accompanied by intermittent chills, nausea, shortness of breath. Patient has a history of [place] in 2016 but denies stent placement. Denies current blood thinner use, history of DVT or PE, recent prolonged travel, swelling in his legs or pain in his calves. He is being seen by cardiology here. He had a CT-AP which showed a fatty liver otherwise there were no abnormalities noted. He does have elevated LFTS. Review of Systems ROS Statement: Those systems with pertinent positive or pertinent negative responses have been documented in the HPI. ROS Other: All systems not noted in ROS Statement are negative. Past Medical History Past Medical History: Diabetes Mellitus, Hypertension Additional Past Medical History / Comment(s): OBESITY History of Any Multi-Drug Resistant Organisms: None Reported Past Surgical History: Heart Catheterization Additional Past Anesthesia/Blood Transfusion Reaction / Comment(s): NO BLOOD TRANSFUSIONS OR ANESTHESIA. Past Psychological History: No Psychological Hx Reported, Depression Past Alcohol Use History: Occasional Past Drug Use History: None Reported - Past Family History Mother Family Medical History: Hypertension Father Family Medical History: Diabetes Mellitus Review Of Systems: At the time of my exam: CONSTITUTIONAL: Denies fever or chills. HEENT: Denies blurred vision, vision changes, or eye pain. Denies hemoptysis CARDIOVASCULAR: Denies chest pain. Denies orthopnea. Denies PND. Denies palpitations RESPIRATORY: Denies shortness of breath. GASTROINTESTINAL: Denies abdominal pain. Denies nausea or vomiting. HEMATOLOGIC: Denies bleeding disorders. GENITOURINARY: Denies any blood in urine. SKIN: Denies puritis. Denies rash. Physical examination: Gen: This is a 39-year-old morbidly obese male in no acute distress VS: reviewed HEENT: Head is atraumatic, normocephalic. Pupils equal, round. Sclerae is anicteric. NECK: Supple. No JVD. LUNGS: Clear to auscultation. No wheezes or rhonchi. No intercostal retractions. HEART: Regular rate and rhythm. No murmur. ABDOMEN: Soft tenderness right upper quadrant EXTREMITIES: No pedal edema. No calf tenderness. NEUROLOGICAL: Patient is awake, alert and oriented x3. 39 year old male with RUQ pain and elevated LFTS -CLD -Agree with MRCP, pending -Cardio Recs -AM labs -Further recs to follow Efren Cartagena [facility] [phone]
[2024-06-23 09:57] LABS: INR 1.07 sec (0.93-1.11); Prothrombin Time 11.5 sec (9.9-11.9)
[2024-06-23 10:15] LABS: ALT 217 U/L (10-49); AST 167 U/L (14-35); Alkaline Phosphatase 106 U/L (41-126); BUN/Creat Ratio 11.78 Ratio (12.00-20.00); Blood Urea Nitrogen 10.6 mg/dL (9.0-27.0); Calcium 8.7 mg/dL (8.7-10.3); Carbon Dioxide 20.9 mmol/L (21.6-31.8); Chloride 101 mmol/L (96-109); Glucose 174 mg/dL (70-110); Potassium 3.8 mmol/L (3.5-5.5); Sodium 134 mmol/L (135-145); Total Bilirubin 2.3 mg/dL (0.3-1.2)
[2024-06-23 11:31] LABS: Hepatitis B Core IgM Nonreactive (Nonreactive)
[2024-06-23 12:16] LABS: Glucose,Whole Blood 238 mg/dL (70-110)
--- NOTE | 2024-06-23 12:16 | P.PN ---
Subjective Progress Note Date: 06/23/24 Consult reason: chest pain History of present illness: This is a 39-year-old male patient of Dr. Theresa Sandoval with past medical history of coronary artery disease, hypertension, dyslipidemia, diabetes. We have been asked to evaluate the patient for chest pain. Patient gives history that he developed pains in the right side of his chest that went across his chest to the left side and also from the right side down to his low rib area. He also has radiation of the pain to his shoulder blade. He stated woke him from a sleep around 4 AM. He also noted to have some shortness of breath, increased heart rate, nausea. He states he checked a pulse ox at home and his pulse ox was less than 90 and his heart rate was over 100. Patient was given nitroglycerin and he thinks it alleviated some of his pain initially 56 out of 10 and reduced to 2 out of 10. He states he has no chest pain today but he does have some pain in the right lower rib area that is on and off this morning for about 10 minutes. He complains of abdominal bloating and belching. Patient had 1 episode of vomiting after nitroglycerin in the emergency center. Blood pressure 120/76, heart rate 88, pulse ox 94% on room air, temperature max 100.3. Patient has been started on a heparin drip. Patient was last seen in the office on 06/12/2024 plan was to schedule him for a treadmill stress test and work on risk factor modification including weight loss and exercise, diet. EKG: Sinus rhythm with no acute ST-T wave changes Chest x-ray: No acute process Abdominal ultrasound: Hepatomegaly with underlying hepatic steatosis CTA of the chest is limited by limited timing of the contrast bolus. There are couple small filling defects seen within the left upper lobe pulmonary artery branches for which small pulmonary emboli cannot be excluded. No large saddle embolus or central embolus seen. Echocardiogram reveals EF of 60 to 65%. No obvious regional wall motion abnormalities. Mild concentric left ventricular hypertrophy. No significant valve dysfunction. Laboratory studies: Initial WBC 11.2 now 8.8, hemoglobin 14. D-dimer 0.8. Sodium 134, potassium 4.2, creatinine 0.8. Elevated liver function test with total bilirubin 4.4, AST 296 down from 553, ALT 281. Troponin negative x 2. proBNP 43. Lipase 125. Home cardiac medications: Atorvastatin 40 mg daily, fenofibrate 160 mg daily, Imdur 30 mg daily, lisinopril 10 mg daily, Lopressor 25 mg twice daily Cardiac catheterization performed 2015 revealed 30 to 40% stenosis involving the proximal LAD with plan for medical management. 06/23 Patient is seen today in follow-up. He has been seen by general surgery and is scheduled for MRCP. Blood pressure 119/80, heart rate 74, pulse ox 96% on room air. No chest pain at this time. Physical examination: Gen: This is a 39-year-old morbidly obese male in no acute distress VS: reviewed HEENT: Head is atraumatic, normocephalic. Pupils equal, round. Sclerae is ani cteric. NECK: Supple. No JVD. LUNGS: Clear to auscultation. No wheezes or rhonchi. No intercostal retractions. HEART: Regular rate and rhythm. No murmur. ABDOMEN: Soft tenderness right upper quadrant EXTREMITIES: No pedal edema. No calf tenderness. NEUROLOGICAL: Patient is awake, alert and oriented x3. Assessment: Atypical chest pain, acute coronary syndrome ruled out History of coronary artery disease as above Abdominal symptoms with pain, bloating, belching and elevated liver function t est and low-grade fever Hypertension Dyslipidemia Diabetes mellitus type 2 Morbid obesity with BMI of 43 Plan: Continue patient's home cardiac medications May hold Lipitor No plan for any further cardiac workup at this time and patient is cleared for discharge. Cardiology will sign off this case and follow on an as-needed basis. Please reconsult for any new concerns. Patient may follow-up in the office with Dr. Theresa Sandoval in one to 2 weeks. Nurse practitioner note has been reviewed, I agree with documented findings and plan of care. Patient was seen and examined. Objective - Vital Signs Vital signs: Vital Signs Temp 99 F 06/23/24 07:00 Pulse 74 06/23/24 07:00 Resp 16 06/23/24 07:00 BP 119/80 06/23/24 07:00 Pulse Ox 96 06/23/24 07:00 FiO2 Intake & Output 06/22/24 06/23/24 06/23/24 18:59 06:59 18:59 Intake Total 102.431 236 Balance 102.431 236 Intake: Intake, IV Titration 102.431 Amount Heparin Sod,Pork in 0.45% 102.431 NaCl 25,000 unit In 0.45 % NaCl 1 250ml.bag @ 6. 999 UNITS/KG/HR 10 mls/hr IV .Q24H [facility] Rx#: [id number] Oral 236 Other: Voiding Method Toilet Toilet Toilet # Voids 3 2 - Labs CBC & Chem 7: 06/22/24 05:59 06/23/24 03:59 Labs: Abnormal Lab Results - Last 24 Hours (Table) 06/22/24 06/22/24 06/22/24 Range/Units 05:59 05:59 12:05 Sodium 134 L (135-145) mmol/L Anion Gap 12.10 H (4.00-12.00) mmol/L Glucose 206 H (70-110) mg/dL POC Glucose (mg/dL) 195 H (70-110) mg/dL Hemoglobin A1c 9.7 H (<=6.0) % Iron (65-175) UG/DL % Saturation (15.00-50.00) Total Bilirubin 4.4 H (0.3-1.2) mg/dL GGT (0-73) U/L AST 296 H (14-35) U/L ALT 281 H (10-49) U/L 06/22/24 06/22/24 06/22/24 Range/Units 12:16 17:10 20:21 Sodium (135-145) mmol/L Anion Gap (4.00-12.00) mmol/L Glucose (70-110) mg/dL POC Glucose (mg/dL) 223 H 187 H (70-110) mg/dL Hemoglobin A1c (<=6.0) % Iron 33 L (65-175) UG/DL % Saturation 10.68 L (15.00-50.00) Total Bilirubin (0.3-1.2) mg/dL GGT 826 H (0-73) U/L AST (14-35) U/L ALT (10-49) U/L 06/23/24 Range/Units 05:39 Sodium (135-145) mmol/L Anion Gap (4.00-12.00) mmol/L Glucose (70-110) mg/dL POC Glucose (mg/dL) 167 H (70-110) mg/dL Hemoglobin A1c (<=6.0) % Iron (65-175) UG/DL % Saturation (15.00-50.00) Total Bilirubin (0.3-1.2) mg/dL GGT (0-73) U/L AST (14-35) U/L ALT (10-49) U/L
--- NOTE | 2024-06-23 13:42 | P.PN ---
Subjective Progress Note Date: 06/23/24 Subjective: 06/22/2024: Patient seen at bedside. No significant overnight events. Patient reports he is feeling better than yesterday, has some intermittent right upper quadrant pain that comes and goes, sharp in nature. Pertinent positives and negatives discussed above, a complete review of systems was preformed and all the other sytems were negative. 06/23. Patient seen and examined.Duplex ultrasound lower extremities negative for DVT. CT abdomen pelvis done showed hepatic steatosis, no evidence for acute abdominal process. Duplex ultrasound for portal vein negative for portal vein thrombosis. Patient low-grade fevers overnight. LFTs have improved. Vitals Signs Reveiwed. General: Obese, non toxic, no distress, appears at stated age, normal weight Derm: no unusual rashes/lesions, warm Head: atraumatic, normocephalic, symmetric Eyes: EOMI, scleral icterus seen ENT: Nose and ears atraumatic Neck: No cervical lymphadenopathy, trachea midline, supple Mouth: no lip lesion, mucus membranes moist Cardiovascular: S1S2 reg, no murmur, positive dorsalis pedis pulse bilateral, no edema Lungs: Decreased air entry bilaterally, no rhonchi, no rales, no accessory muscle use Abdominal: soft, nontender to palpation, no guarding Ext: muscle strength 5 out of 5 in all 4 extremities grossly, no gross muscle atrophy, no contractures, Neuro: CN II-XI grossly intact, no gross focal neuro deficits Psych: Alert, oriented, appropriate affect Data Reveiwed Today: Imaging: Echo done yesterday showed EF of 60 to 65%, no wall motion abnormalities, mild concentric LVH, no significant valve dysfunction. Assessment:39-year-old male with a past medical history of hypertension, diabetes, hyperlipidemia presents with chest pain that started earlier this morning. Patient is being worked up to rule out ACS and PE. Patient is also being worked up for transaminitis. Plan: #Atypical chest pain: History of VT in 2016 without stent placement, potentially PE based on CT findings Negative tropes and BNP in the ED, EKG also shows NSR with no ST elevation Echo showed EF of 60 to 65% Patient normally on aspirin at home Cardiology following, recommend no ischemic workup #Transaminitis : Patient reports he is not a big drinker, last drink was at [facility] 1 week ago. Monitor LFTs Avoid hepatic toxic agents Abdominal ultrasound shows hepatomegaly and underlying steatosis Hepatitis panel negative, iron panel reviewed, AREN, CT abdomen pelvis done showed hepatic steatosis, no evidence for acute abdominal process. Duplex ultrasound for portal vein negative for portal vein thrombosis Start IV Zosyn MRCP pending #Hypertension: Continue home blood pressure medication #Hyperlipidemia: Continue to hold home statin and fenofibrate, in the context of suspecting statin induced liver injury #Diabetes mellitus: Sliding scale per protocol Objective - Vital Signs Vital signs: Vital Signs Temp 99 F 06/23/24 07:00 Pulse 74 06/23/24 07:00 Resp 16 06/23/24 07:00 BP 119/80 06/23/24 07:00 Pulse Ox 96 06/23/24 07:00 FiO2 Intake & Output 06/22/24 06/23/24 06/23/24 18:59 06:59 18:59 Intake Total 102.431 236 Balance 102.431 236 Intake: Intake, IV Titration 102.431 Amount Heparin Sod,Pork in 0.45% 102.431 NaCl 25,000 unit In 0.45 % NaCl 1 250ml.bag @ 6. 999 UNITS/KG/HR 10 mls/hr IV .Q24H [facility] Rx#: [id number] Oral 236 Other: Voiding Method Toilet Toilet Toilet # Voids 3 2 - Labs CBC & Chem 7: 06/22/24 05:59 06/23/24 03:59 Labs: Abnormal Lab Results - Last 24 Hours (Table) 06/22/24 06/22/24 06/22/24 Range/Units 05:59 12:05 12:16 POC Glucose (mg/dL) 195 H (70-110) mg/dL Hemoglobin A1c 9.7 H (<=6.0) % Iron 33 L (65-175) UG/DL % Saturation 10.68 L (15.00-50.00) GGT 826 H (0-73) U/L 06/22/24 06/22/24 06/23/24 Range/Units 17:10 20:21 05:39 POC Glucose (mg/dL) 223 H 187 H 167 H (70-110) mg/dL Hemoglobin A1c (<=6.0) % Iron (65-175) UG/DL % Saturation (15.00-50.00) GGT (0-73) U/L
[2024-06-23] MEDS: PIPERACILLIN-TAZOBACTAM 3.375 GM in SODIUM CHLORIDE 0.9% 100 ML IVPB SCH (15:25)
[2024-06-23 17:30] LABS: Glucose,Whole Blood 220 mg/dL (70-110)
[2024-06-23 19:45] LABS: Glucose,Whole Blood 233 mg/dL (70-110)
[2024-06-24 05:21] LABS: Glucose,Whole Blood 200 mg/dL (70-110)
[2024-06-24 08:29] LABS: ALT 155 U/L (4-49); AST 77 U/L (17-59); African American GFR (CKD) >90 (>60 ml/min/1.73 sqM); Albumin 3.8 g/dL (3.5-5.0); Albumin/Globulin Ratio 1.5; Alkaline Phosphatase 103 U/L (38-126); Anion Gap 14 mmol/L; Blood Urea Nitrogen 8 mg/dL (9-20); Calcium 8.7 mg/dL (8.4-10.2); Carbon Dioxide 21 mmol/L (22-30); Chloride 101 mmol/L (98-107); Globulin 2.5 g/dL; Glucose 223 mg/dL (74-99); Non-African American GFR(CKD) >90 (>60 ml/min/1.73 sqM); Potassium 3.9 mmol/L (3.5-5.1); Sodium 136 mmol/L (137-145); Total Bilirubin 1.4 mg/dL (0.2-1.3); Total Protein 6.3 g/dL (6.3-8.2)
[2024-06-24 12:05] LABS: Glucose,Whole Blood 223 mg/dL (70-110)
--- NOTE | 2024-06-24 12:49 | MR ---
EXAMINATION TYPE: MR MRCP DATE OF EXAM: 06/24/2024 11:42 AM CLINICAL INDICATION: Male, 39 years old with history of Abdominal pain, possible stone bile duct, abd ominal pain/ possible stone bile duct COMPARISON: None TECHNIQUE: Multi planar, T2-weighted imaging with and without fat saturation and chemical shift imag ing was performed of the abdomen. Then, heavily T2 weighted imaging (half-Fourier acquisition single- shot turbo spin-echo) was utilized in order to study the biliary system. Maximum intensity projectio n images were reconstructed from the original data of the biliary tree. 3D images were created on BATS work station. No Gadolinium given. FINDINGS: Lower Thorax: The heart is mildly enlarged for size. MRCP: * The intrahepatic ducts have a normal appearance. * The extrahepatic ducts have a normal appearance. * The common hepatic duct measures 6 mm in size. * The common bile duct at the level of the pancreatic head measures 4 mm in size. * The pancreatic duct is normal. * The gallbladder appears unremarkable. Abdomen: Liver: No evidence for hepatic steatosis or cirrhosis. Pancreas: Posterior to the common bile duct is a 15 x 7 mm high T2 signal cystic structure. No ductal dilation. No evidence for solid mass. Spleen: Upper limits normal measuring 13.8 cm. Adrenal glands: Unremarkable. Kidneys: High T2 signal simple appearing left renal cyst. No evidence for obstructive uropathy. No mckeon spicious renal masses. Renal calculi not well appreciated on MRI. Stomach and Bowel: No evidence for bowel wall thickening or evidence for obstruction. Retroperitoneum/Peritoneum: No evidence of pneumoperitoneum or free fluid. Vasculature: No aortic aneurysm. Musculoskeletal: The osseous structures appear intact. Lymph Nodes: No gross evidence for lymphadenopathy. Abdominal wall: Unremarkable. IMPRESSION: 1. No evidence to suggest ductal stricture, choledocholithiasis, or biliary ductal dilatation. 2. Pancreatic head 15 x 7 mm cystic lesion possibly representing sequela of prior pancreatitis versu s side branch intraductal mucinous neoplasm versus other cystic neoplasms. Attention on follow-up jere ging in one year with MRI MRCP with contrast to ensure stability. 3. Simple appearing left renal cortical cyst. [facility], , 06/24/2024 12:47 PM
--- NOTE | 2024-06-24 13:25 | P.PN ---
Subjective Progress Note Date: 06/24/24 CHIEF COMPLAINT: Right upper quadrant abdominal pain HISTORY OF PRESENT ILLNESS: Patient reports abdominal pain is resolved. He had a loose bowel movement today. He has been complaining of belching especially after eating. Denies any nausea or vomiting. Afebrile. WBC 8.83. Total bilirubin 2.3 down to 1.4 LFTs trending down. Alk phos is normal. Patient had MRCP today which reported no evidence to suggest ductal stricture, choledocholithiasis or biliary ductal dilatation. Pancreatic head 15 x 7 mm cystic lesion possibly representing sequelae of prior pancreatitis versus intraductal mucinous neoplasm versus cystic neoplasms. PHYSICAL EXAM: VITAL SIGNS: Reviewed. GENERAL: Well-developed in no acute distress. ABDOMEN: Soft. Nondistended. Nontender. NEUROLOGIC: Alert and oriented. Cranial nerves II through XII grossly intact. ASSESSMENT: 1. Right upper quadrant abdominal pain and elevated LFTs. MRCP with no evidence of choledocholithiasis but did report a pancreatic head cystic lesion 2. Fatty liver PLAN: -Agree with resuming low-fat diet -Patient followed by GI service, will await their further recommendations Physician Automatic Log Cut Off Sawyer note has been reviewed by physician. Signing provider agrees with the documented findings, assessment, and plan of care. Objective - Vital Signs Vital signs: Vital Signs Temp 98.4 F 06/24/24 06:55 Pulse 76 06/24/24 06:55 Resp 17 06/24/24 06:55 BP 130/75 06/24/24 06:55 Pulse Ox 96 06/24/24 06:55 FiO2 Intake & Output 06/23/24 06/24/24 06/24/24 18:59 06:59 18:59 Intake Total 236 Balance 236 Intake: Oral 236 Other: Voiding Method Toilet Toilet Toilet # Voids 3 2 - Labs CBC & Chem 7: 06/22/24 05:59 06/24/24 08:01 Labs: Abnormal Lab Results - Last 24 Hours (Table) 06/22/24 06/23/24 06/23/24 Range/Units 12:17 17:28 19:43 Sodium (137-145) mmol/L Carbon Dioxide (22-30) mmol/L BUN (9-20) mg/dL Creatinine (0.66-1.25) mg/dL Glucose (74-99) mg/dL POC Glucose (mg/dL) 220 H 233 H (70-110) mg/dL Total Bilirubin (0.2-1.3) mg/dL AST (17-59) U/L ALT (4-49) U/L IgG1 246.50 L (382.40-928.60) mg/dL 06/24/24 06/24/24 06/24/24 Range/Units 05:16 08:01 12:03 Sodium 136 L (137-145) mmol/L Carbon Dioxide 21 L (22-30) mmol/L BUN 8 L (9-20) mg/dL Creatinine 0.64 L (0.66-1.25) mg/dL Glucose 223 H (74-99) mg/dL POC Glucose (mg/dL) 200 H 223 H (70-110) mg/dL Total Bilirubin 1.4 H (0.2-1.3) mg/dL AST 77 H (17-59) U/L ALT 155 H (4-49) U/L IgG1 (382.40-928.60) mg/dL
[2024-06-24 13:49] VITALS: BMI 43.9
--- NOTE | 2024-06-24 14:24 | P.CONS ---
History of Present Illness - Reason for Consult Consult date: 06/24/24 LFT, suspected choledocholithiasis Requesting physician: Dariela Corbett - Chief Complaint Chest pain, right upper quadrant pain - History of Present Illness This is a pleasant 39-year-old male who presented to the emergency department 3 days ago with complaints of chest pain and right upper quadrant pain. States the pain started as a pain in the mid chest with radiation to the right side and to his back and woke him up at 4 AM on Monday morning. He had presented to the emergency department with concerns of having a heart attack. He has a past medical history of [place] in 2016, diabetes mellitus and hypertension. On admission he had elevated bilirubin, AST and ALT which did increase and total bilirubin peaked at 4.4 AST 553 ALT 281 and has steadily decline. On today's evaluation patient states abdominal pain is mostly gone might get a little discomfort in the right upper quadrant but for the most part is gone. Total bilirubin and LFTs continue to trend down with today total bilirubin 1.4 AST 77 ALT 155 and alkaline phosphatase 103. Amylase and lipase was normal on admission as well as hepatitis panel nonreactive. He was noted to have fever during this admission with max temp of 100.3. Currently abdominal pain has improved. He has been afebrile for last 24 to 48 hours. Denies any nausea or vomiting. Review of Systems REVIEW OF SYSTEMS: CARDIOPULMONARY: No chest pain or shortness of breath. Gastrointestinal: Epigastric and right upper quadrant abdominal pain. No nausea or vomiting. No hematemesis, coffee-ground emesis. No rectal bleeding, or melena. GENITOURINARY: No dysuria or hematuria. MUSCULOSKELETAL: Reports normal range of motion. SKIN: No rashes. No jaundice. ENDOCRINE: No chills, fevers. No excessive weight gain or loss. No polydipsia or polyuria. PSYCHIATRIC: Unremarkable. NEUROLOGY: No change in mental status. Denies dizziness, headache. ENT: Vision unremarkable. CONSTITUTIONAL: No recent weight loss. Fever, chills, night sweats. Past Medical History Past Medical History: Diabetes Mellitus, Hypertension, Myocardial Infarction ([place]) Additional Past Medical History / Comment(s): [place], [place] 2016 Last Myocardial Infarction Date:: 2016 History of Any Multi-Drug Resistant Organisms: None Reported Past Surgical History: Heart Catheterization Past Anesthesia/Blood Transfusion Reactions: No Reported Reaction Additional Past Anesthesia/Blood Transfusion Reaction / Comm: NO BLOOD TRANSFUSIONS OR ANESTHESIA. Past Psychological History: No Psychological Hx Reported, Depression Smoking Status: Never smoker Past Alcohol Use History: Occasional Past Drug Use History: None Reported - Past Family History Mother Family Medical History: Hypertension Father Family Medical History: Diabetes Mellitus Medications and Allergies Home Medications Medication Instructions Recorded Confirmed Type Isosorbide Mononitrate ER [Imdur] 30 mg PO DAILY #30 tab.er.24h 01/05/16 06/21/24 Rx Metoprolol Tartrate [Lopressor] 25 mg PO BID #60 tab 01/05/16 06/21/24 Rx Atorvastatin [Lipitor] 40 mg PO DAILY 06/21/24 06/21/24 History Fenofibrate [Lofibra] 160 mg PO DAILY 06/21/24 06/21/24 History Insulin Glargine,Hum.rec.anlog 16 units SQ QAM 06/21/24 06/21/24 History [Toujeo Max Solostar] glipiZIDE [glipiZIDE ER] 10 mg PO BID 06/21/24 06/21/24 History lisinopriL [Zestril] 10 mg PO DAILY 06/21/24 06/21/24 History metFORMIN HCL [Glucophage] 500 mg PO TID 06/21/24 06/21/24 History Allergies Allergy/AdvReac Type Severity Reaction Status Date / Time cefaclor [From [facility]] Allergy Rash/Hives Verified 06/21/24 09:35 Physical Exam Vitals: Vital Signs Temp Pulse Resp BP BP Pulse Ox 06/24/24 06:55 98.4 F 76 17 130/75 96 06/24/24 01:30 98.9 F 73 18 165/76 96 06/24/24 01:20 79 16 06/23/24 20:02 79 16 06/23/24 18:36 99 F 79 16 118/73 99 06/23/24 14:07 98.7 F 77 16 112/69 97 Intake and Output 06/23/24 06/24/24 06/24/24 22:59 06:59 14:59 Other: Voiding Method Toilet Toilet Toilet # Voids 2 2 General appearance: The patient is alert, oriented, appears in no acute dist ress. HET: Head is normocephalic and atraumatic. Conjunctiva pink. Sclera anicteric. Neck: Supple without lymphadenopathy. Trachea midline. Heart: Regular. Lungs: Equal expansion, normal respiratory effort. Abdomen: Soft, nontender, nondistended. Skin: No rashes. No jaundice. Extremities: Normal skin color and turgor. No pedal edema. Neurological: No focal deficits. Alert and oriented x3. Results CBC & Chem 7: 06/22/24 05:59 06/24/24 08:01 Labs: Abnormal Lab Results - Last 24 Hours (Table) 06/22/24 06/23/24 06/23/24 Range/Units 12:17 17:28 19:43 Sodium (137-145) mmol/L Carbon Dioxide (22-30) mmol/L BUN (9-20) mg/dL Creatinine (0.66-1.25) mg/dL Glucose (74-99) mg/dL POC Glucose (mg/dL) 220 H 233 H (70-110) mg/dL Total Bilirubin (0.2-1.3) mg/dL AST (17-59) U/L ALT (4-49) U/L IgG1 246.50 L (382.40-928.60) mg/dL 06/24/24 06/24/24 06/24/24 Range/Units 05:16 08:01 12:03 Sodium 136 L (137-145) mmol/L Carbon Dioxide 21 L (22-30) mmol/L BUN 8 L (9-20) mg/dL Creatinine 0.64 L (0.66-1.25) mg/dL Glucose 223 H (74-99) mg/dL POC Glucose (mg/dL) 200 H 223 H (70-110) mg/dL Total Bilirubin 1.4 H (0.2-1.3) mg/dL AST 77 H (17-59) U/L ALT 155 H (4-49) U/L IgG1 (382.40-928.60) mg/dL Comments: Abdominal ultrasound reports hepatomegaly with underlying hepatic steatosis CT abdomen pelvis reports hepatic steatosis. No evidence for acute abdominal process. Bilateral nonobstructing renal calculi. MRCP reports no evidence to suggest ductal stricture, choledocholithiasis or biliary ductal dilation. Pancreatic head 15 x 7 mm cystic lesion possibly representing sequela of prior pancreatitis versus sidebranch intraductal mucous neoplasm versus other cystic neoplasm. Attention on follow-up imaging in 1 year with MRI MRCP with contrast to ensure stability. Simple appearing left renal cortical cyst. Assessment and Plan (1) Elevated LFTs Narrative/Plan: 39-year-old male presenting with epigastric pain radiating to the right with noted elevated LFTs. Although CT imaging and ultrasound did not report any cholelithiasis, to consider possible microlithiasis as labs are in a cholestatic pattern which continue to trend down however need to consider possibility of passing gallstone. MRCP shows no evidence of bowel stricture, choledocholithiasis, or biliary ductal dilation. Patient again likely passed a micro stone and no indication for any ERCP. Would recommend proceeding with cholecystectomy secondary to fevers, right upper quadrant pain with elevated LFTs suspicious for passing biliary stone. Current Visit: Yes Status: Acute Code(s): R79.89 - OTHER SPECIFIED ABNORMAL FINDINGS OF BLOOD CHEMISTRY SNOMED Code(s): 963494954 (2) Right upper quadrant abdominal pain Current Visit: Yes Status: Acute Code(s): R10.11 - RIGHT UPPER QUADRANT PAIN SNOMED Code(s): 588112258 (3) Fever Current Visit: Yes Status: Acute Code(s): R50.9 - FEVER, UNSPECIFIED SNOMED Code(s): 205063227 Plan: 1. Continue symptomatic supportive care 2. Patient may have low-fat diet 3. Repeat CMP in a.m. 4. There is no indication for ERCP 5. Continue with recommendations from general surgery Thank you for this consultation, we will continue to follow. Dr. Graham Sandoval I agree with the dictator's note, documented as a scribe by Ely Alexander.
--- NOTE | 2024-06-24 14:46 | P.PN ---
Subjective 06/22/2024: Patient seen at bedside. No significant overnight events. Patient reports he is feeling better than yesterday, has some intermittent right upper quadrant pain that comes and goes, sharp in nature. Pertinent positives and negatives discussed above, a complete review of systems was preformed and all the other sytems were negative. 06/23. Patient seen and examined.Duplex ultrasound lower extremities negative for DVT. CT abdomen pelvis done showed hepatic steatosis, no evidence for acute abdominal process. Duplex ultrasound for portal vein negative for portal vein thrombosis. Patient low-grade fevers overnight. LFTs have improved. 06/24: Patient seen at bedside. No significant overnight events. Patient remained afebrile overnight. Patient reports only symptom he has is persistent belching which is occurred since admission is not normal for him. Vitals Signs Reveiwed. General: Obese, non toxic, no distress, appears at stated age, normal weight Derm: no unusual rashes/lesions, warm Head: atraumatic, normocephalic, symmetric Eyes: EOMI, scleral icterus seen ENT: Nose and ears atraumatic Neck: No cervical lymphadenopathy, trachea midline, supple Mouth: no lip lesion, mucus membranes moist Cardiovascular: S1S2 reg, no murmur, positive dorsalis pedis pulse bilateral, no edema Lungs: Decreased air entry bilaterally, no rhonchi, no rales, no accessory muscle use Abdominal: soft, nontender to palpation, no guarding Ext: muscle strength 5 out of 5 in all 4 extremities grossly, no gross muscle atrophy, no contractures, Neuro: CN II-XI grossly intact, no gross focal neuro deficits Psych: Alert, oriented, appropriate affect Data Reveiwed Today: New labs: Sodium 136, potassium 3.9, creatinine 0.64, glucose 223, T. bili 1.4, AST 77, ALT 155 Imaging: Echo done yesterday showed EF of 60 to 65%, no wall motion abnormalities, mild concentric LVH, no significant valve dysfunction. MRCP shows no evidence to suggest ductal stricture, choledocholithiasis, or biliary ductal dilation. Also shows pancreatic head 15 x 7 mm cystic lesion possibly representing sequela of prior pancreatitis versus sidebranch intraductal mucinous neoplasm versus other cystic neoplasms. Assessment:39-year-old male with a past medical history of hypertension, diabetes, hyperlipidemia presents with chest pain that started earlier this morning. Chest pain has resolved after negative cardiac workup. Transaminitis continues to improve after holding home statin and fenofibrate. AST decreased from 167 to 77 and ALT from 217 to 55 and T. bili 2.3 to 1.4. Plan: #Atypical chest pain: History of AK in 2016 without stent placement, potentially PE based on CT findings: Resolved Negative tropes and BNP in the ED, EKG also shows NSR with no ST elevation Echo showed EF of 60 to 65% Patient normally on aspirin at home Cardiology following, recommend no ischemic workup #Transaminitis: Patient reports he is not a big drinker, last drink was at [facility] 1 week ago. History of home statin and fibrate use. Monitor LFTs Avoid hepatic toxic agents Abdominal ultrasound shows hepatomegaly and underlying steatosis Hepatitis panel negative, iron panel reviewed, AREN, CT abdomen pelvis done showed hepatic steatosis, no evidence for acute abdominal process. Duplex ultrasound for portal vein negative for portal vein thrombosis Start IV Zosyn GI is following, do not recommend ERCP at this time Patient would benefit from endoscopic ultrasound for further workup of newly found Pancreatic cyst on MRCP Chronic #Hypertension: Continue home blood pressure medication #Hyperlipidemia: Continue to hold home statin and fenofibrate, in the context of suspecting statin induced liver injury #Diabetes mellitus: Sliding scale per protocol Anticipated place of discharge: To home Anticipated time of discharge: Potentially tomorrow if surgery chooses not to perform lap maggie during this admission and makes it an elective procedure outp atient. Attestation I have seen and examined this patient with my resident , discussed the same with the resident/YAQUELIN, and agree with the dictator's assessment and plan as written Dr. Trav crawford Objective - Vital Signs Vital signs: Vital Signs Temp 98.9 F 06/24/24 01:30 Pulse 73 06/24/24 01:30 Resp 18 06/24/24 01:30 BP 165/76 06/24/24 01:30 Pulse Ox 96 06/24/24 01:30 FiO2 Intake & Output 06/23/24 06/24/24 06/24/24 18:59 06:59 18:59 Intake Total 236 Balance 236 Intake: Oral 236 Other: Voiding Method Toilet Toilet # Voids 3 2 - Labs CBC & Chem 7: 06/22/24 05:59 06/24/24 08:01 Labs: Abnormal Lab Results - Last 24 Hours (Table) 10/03/1106/23/24 06/23/24 Range/Units 03:59 12:15 17:28 Sodium 134 L (135-145) mmol/L Carbon Dioxide 20.9 L (21.6-31.8) mmol/L Anion Gap 12.10 H (4.00-12.00) mmol/L BUN/Creatinine Ratio 11.78 L (12.00-20.00) Ratio Glucose 174 H (70-110) mg/dL POC Glucose (mg/dL) 238 H 220 H (70-110) mg/dL Total Bilirubin 2.3 H (0.3-1.2) mg/dL AST 167 H (14-35) U/L ALT 217 H (10-49) U/L Total Protein 6.0 L (6.2-8.2) g/dL 06/23/24 06/24/24 Range/Units 19:43 05:16 Sodium (135-145) mmol/L Carbon Dioxide (21.6-31.8) mmol/L Anion Gap (4.00-12.00) mmol/L BUN/Creatinine Ratio (12.00-20.00) Ratio Glucose (70-110) mg/dL POC Glucose (mg/dL) 233 H 200 H (70-110) mg/dL Total Bilirubin (0.3-1.2) mg/dL AST (14-35) U/L ALT (10-49) U/L Total Protein (6.2-8.2) g/dL
[2024-06-24 17:21] LABS: Glucose,Whole Blood 233 mg/dL (70-110)
[2024-06-24 19:53] LABS: Glucose,Whole Blood 272 mg/dL (70-110)
[2024-06-25 05:42] LABS: Glucose,Whole Blood 214 mg/dL (70-110)
[2024-06-25 07:58] VITALS: BP 141/81; PULSE 70; RESP 16; TEMP 98.2
--- NOTE | 2024-06-25 08:05 | P.CONS ---
History of Present Illness - Reason for Consult Consult date: 06/24/24 Fever, cholangitis Requesting physician: Trav Dorman - Chief Complaint Right upper quadrant and chest pain x 1 day on admission - History of Present Illness Patient is a 39-year-old male with a past medical history significant for diabetes mellitus hypertension [place] obesity presenting to the hospital 3 days ago for evaluation of right sided chest pain and right upper quadrant abdominal pain that started the morning of presentation to the hospital patient did have some chills and nausea but no vomiting was also complaining of increasing shortness of breath with the symptoms the patient has been evaluated patient was describing the pain to be mostly sharp in nature and moderate intensity without any radiation, patient on presentation to the hospital was afebrile initially however subsequently patient has been running a low-grade fever of 100.2 to 100.3 degrees Fahrenheit, patient was not tachycardic hypotensive or hypoxic and no need for supplemental oxygen patient did have a elevated white count of 11.2 admission subsequent white count has normalized creatinine is normal liver enzymes are mildly elevated patient he did have a bilirubin of 3.4 AST of 553 ALT of 277 admission blood trending down and manage lipase has been normal hepatitis serology has been negative patient has been treated with Zosyn infectious was consulted concerning for cholangitis patient did have a CT new lab on admission small left upper lobe PE not excluded patient did have abdominal pelvis CT hepatic steatosis no evidence for acute abdominal process bilateral nonobstructing kidney stone patient also have lower extremity Doppler that has been negative for DVT did have MRCP no evidence for hepatic steatosis or cirrhosis no ductal dilatation there was a cystic structure in the pancreatic head posterior the common bile duct Review of Systems Positive point and negatives has been mentioned in the HPI, complete review of systems was performed and all other systems are negative Past Medical History Past Medical History: Diabetes Mellitus, Hypertension, Myocardial Infarction (HI) Additional Past Medical History / Comment(s): OBESITY, HI 2016 Last Myocardial Infarction Date:: 2016 History of Any Multi-Drug Resistant Organisms: None Reported Past Surgical History: Heart Catheterization Past Anesthesia/Blood Transfusion Reactions: No Reported Reaction Additional Past Anesthesia/Blood Transfusion Reaction / Comm: NO BLOOD TRANSFUSIONS OR ANESTHESIA. Past Psychological History: No Psychological Hx Reported, Depression Smoking Status: Never smoker Past Alcohol Use History: Occasional Past Drug Use History: None Reported - Past Family History Mother Family Medical History: Hypertension Father Family Medical History: Diabetes Mellitus Medications and Allergies Home Medications Medication Instructions Recorded Confirmed Type Isosorbide Mononitrate ER [Imdur] 30 mg PO DAILY #30 tab.er.24h 01/05/16 Rx Metoprolol Tartrate [Lopressor] 25 mg PO BID #60 tab 01/05/16 06/21/24 Rx Atorvastatin [Lipitor] 40 mg PO DAILY 06/21/24 06/21/24 History Fenofibrate [Lofibra] 160 mg PO DAILY 06/21/24 06/21/24 History Insulin Glargine,Hum.rec.anlog 16 units SQ QAM 06/21/24 06/21/24 History [Toujeo Max Solostar] glipiZIDE [glipiZIDE ER] 10 mg PO BID 06/21/24 06/21/24 History lisinopriL [Zestril] 10 mg PO DAILY 06/21/24 06/21/24 History metFORMIN HCL [Glucophage] 500 mg PO TID 06/21/24 06/21/24 History Allergies Allergy/AdvReac Type Severity Reaction Status Date / Time cefaclor [From [facility]] Allergy Rash/Hives Verified 06/21/24 09:35 Physical Exam Vitals: Vital Signs Temp Pulse Resp BP BP Pulse Ox 06/24/24 06:55 98.4 F 76 17 130/75 96 06/24/24 01:30 98.9 F 73 18 165/76 96 06/24/24 01:20 79 16 06/23/24 20:02 79 16 06/23/24 18:36 99 F 79 16 118/73 99 06/23/24 14:07 98.7 F 77 16 112/69 97 Intake and Output 06/23/24 06/24/24 06/24/24 22:59 06:59 14:59 Other: Voiding Method Toilet Toilet Toilet # Voids 2 2 GENERAL DESCRIPTION: Middle-aged male up in bed, no distress. No tachypnea or accessory muscle of respiration use. HEENT: Shows Pallor , no scleral icterus. Oral mucous membrane is dry. No pharyngeal erythema or thrush NECK: Trachea central, no thyromegaly. LUNGS: Unlabored breathing. Clear to auscultation anteriorly. No wheeze or crackle. HEART: S1, S2, regular rate and rhythm. No loud murmur ABDOMEN: Soft, no tenderness , guarding or rigidity, no organomegaly EXTREMITIES: No edema of feet. SKIN: No rash, no masses palpable. NEUROLOGICAL: The patient is awake, alert, oriented x3, mood and affect normal. Results CBC & Chem 7: 06/22/24 05:59 06/24/24 08:01 Labs: Abnormal Lab Results - Last 24 Hours (Table) 06/23/24 06/23/24 06/23/24 Range/Units 12:15 17:28 19:43 Sodium (137-145) mmol/L Carbon Dioxide (22-30) mmol/L BUN (9-20) mg/dL Creatinine (0.66-1.25) mg/dL Glucose (74-99) mg/dL POC Glucose (mg/dL) 238 H 220 H 233 H (70-110) mg/dL Total Bilirubin (0.2-1.3) mg/dL AST (17-59) U/L ALT (4-49) U/L 06/24/24 06/24/24 Range/Units 05:16 08:01 Sodium 136 L (137-145) mmol/L Carbon Dioxide 21 L (22-30) mmol/L BUN 8 L (9-20) mg/dL Creatinine 0.64 L (0.66-1.25) mg/dL Glucose 223 H (74-99) mg/dL POC Glucose (mg/dL) 200 H (70-110) mg/dL Total Bilirubin 1.4 H (0.2-1.3) mg/dL AST 77 H (17-59) U/L ALT 155 H (4-49) U/L Assessment and Plan (1) Cholangitis Current Visit: Yes Status: Acute Code(s): K83.09 - OTHER CHOLANGITIS SNOMED Code(s): 50850341 (2) Elevated LFTs Current Visit: Yes Status: Acute Code(s): R79.89 - OTHER SPECIFIED ABNORMAL FINDINGS OF BLOOD CHEMISTRY SNOMED Code(s): 872606989 (3) Fever Current Visit: Yes Status: Acute Code(s): R50.9 - FEVER, UNSPECIFIED SNOMED Code(s): 507658311 Plan: 1patient presented to hospital with right upper quadrant abdominal as well as right-sided chest pain in this patient who did have a low-grade fever did have elevated white count admission and elevated liver enzymes highly clinic suspicious for cholangitis likely from a possible stone and will need to cover for the enteric gram-negative both aerobes and anaerobes. 2patient with cephalosporin allergy that will limit the number of antibiotics safe to use. 3we will continue with empiric Zosyn as the patient did have improvement fever as well as liver enzymes and will transition to oral antibiotic on discharge We will follow on clinical condition and cultures to further adjust medication if needed Thank you for this consultation we will follow the patient along with you Dictation was produced using [employer] dictation software. please excuse any grammatical, word or spelling errors.
[2024-06-25 08:15] LABS: Appearance,Urine Clear (Clear); Bilirubin,Urine Negative (Negative); Blood,Urine Moderate (Negative); Color,Urine Yellow; Glucose,Urine (UA) 3+ (Negative); Ketones,Urine 1+ (Negative); Leukocyte Esterase,Urine Negative (Negative); Mucus,Urine Rare /hpf; Nitrite,Urine Negative (Negative); PH, Urine 5.5 (5.0-8.0); Protein,Urine Negative (Negative); RBC,Urine 36 /hpf (0-5); Specific Gravity,Urine 1.015 (1.001-1.035); Squamous Epithelial Cell,Urine <1 /hpf (0-4); Urobilinogen,Urine <2.0 mg/dL (<2.0); WBC,Urine 1 /hpf (0-5)
[2024-06-25 12:05] LABS: Glucose,Whole Blood 253 mg/dL (70-110)
[2024-06-25 13:27] LABS: Creatine Kinase 50 U/L (35-257)
[2024-06-25 13:54] LABS: ALT 121 U/L (10-49); AST 50 U/L (14-35); Albumin 4.1 g/dL (3.8-4.9); Albumin/Globulin Ratio 1.95 Ratio (1.60-3.17); Alkaline Phosphatase 128 U/L (41-126); BUN/Creat Ratio 11.14 Ratio (12.00-20.00); Blood Urea Nitrogen 7.8 mg/dL (9.0-27.0); Calcium 8.7 mg/dL (8.7-10.3); Carbon Dioxide 22.7 mmol/L (21.6-31.8); Chloride 101 mmol/L (96-109); Globulin 2.1 g/dL (1.6-3.3); Glucose 217 mg/dL (70-110); Sodium 138 mmol/L (135-145); Total Protein 6.2 g/dL (6.2-8.2)
--- NOTE | 2024-06-25 14:01 | P.PN ---
Subjective Progress Note Date: 06/25/24 CHIEF COMPLAINT: Right upper quadrant abdominal pain HISTORY OF PRESENT ILLNESS: Patient denies any abdominal pain. Denies any nausea or vomiting. MRCP had reported a pancreatic cystic head lesion. No e vidence of common bile duct stone. Patient is afebrile. He has been tolerating diet. Total bilirubin has normalized at 1.0 AST and ALT trending down. Alk phos 128 PHYSICAL EXAM: VITAL SIGNS: Reviewed. GENERAL: Well-developed in no acute distress. ABDOMEN: Soft. Nondistended. Nontender. NEUROLOGIC: Alert and oriented. Cranial nerves II through XII grossly intact. ASSESSMENT: 1. Right upper quadrant abdominal pain and elevated LFTs. MRCP with no evidence of choledocholithiasis but did report a pancreatic head cystic lesion 2. Fatty liver PLAN: -No surgical intervention planned -Recommend to follow-up with a Hepatobiliary specialist out of [facility] or a Dr. Wong Garcia out of [place] regarding the pancreatic head cystic lesion/mass -Resume low-fat diet -Okay to discharge from surgical standpoint if tolerating diet Physician Retail Sales Consultant note has been reviewed by physician. Signing provider agrees with the documented findings, assessment, and plan of care. Attestation Agree with above note. Patient with finding of pancreatic cystic head lesion. No common bile duct stone. At this point,, no recommendation for cholecystectomy. Patient needs workup for the pancreatic cystic head lesion with hepatobiliary specialist. Recommendation was made for hepatobiliary team at [facility], [facility] or Meet Garcia out of [facility]. No plan for surgical intervention at this time. Britton Luna, Objective - Vital Signs Vital signs: Vital Signs Temp 98.2 F 06/25/24 07:00 Pulse 70 06/25/24 07:00 Resp 16 06/25/24 07:00 BP 141/81 06/25/24 07:00 Pulse Ox 97 06/25/24 07:00 FiO2 Intake & Output 06/24/24 06/25/24 06/25/24 18:59 06:59 18:59 Intake Total 118 Balance 118 Weight 142.882 kg Intake: Oral 118 Other: Voiding Method Toilet Toilet Toilet # Voids 1 2 # Bowel Movements 1 - Labs CBC & Chem 7: 06/22/24 05:59 06/25/24 06:44 Labs: Abnormal Lab Results - Last 24 Hours (Table) 06/24/24 06/24/24 06/25/24 Range/Units 17:20 19:50 05:40 Anion Gap (4.00-12.00) mmol/L BUN (9.0-27.0) mg/dL BUN/Creatinine Ratio (12.00-20.00) Ratio Glucose (70-110) mg/dL POC Glucose (mg/dL) 233 H 272 H 214 H (70-110) mg/dL AST (14-35) U/L ALT (10-49) U/L Alkaline Phosphatase (41-126) U/L Urine Glucose (UA) (Negative) Urine Ketones (Negative) Urine Blood (Negative) Urine RBC (0-5) /hpf Urine Mucus (None) /hpf 06/25/24 06/25/24 06/25/24 Range/Units 06:44 07:26 12:04 Anion Gap 14.30 H (4.00-12.00) mmol/L BUN 7.8 L (9.0-27.0) mg/dL BUN/Creatinine Ratio 11.14 L (12.00-20.00) Ratio Glucose 217 H (70-110) mg/dL POC Glucose (mg/dL) 253 H (70-110) mg/dL AST 50 H (14-35) U/L ALT 121 H (10-49) U/L Alkaline Phosphatase 128 H (41-126) U/L Urine Glucose (UA) 3+ H (Negative) Urine Ketones 1+ H (Negative) Urine Blood Moderate H (Negative) Urine RBC 36 H (0-5) /hpf Urine Mucus Rare H (None) /hpf
--- NOTE | 2024-06-25 14:23 | P.PN ---
Subjective Progress Note Date: 06/25/24 Principal diagnosis: Elevated LFTs This is a pleasant 39-year-old male who presented to the emergency department 3 days ago with complaints of chest pain and right upper quadrant pain. States the pain started as a pain in the mid chest with radiation to the right side and to his back and woke him up at 4 AM on Monday morning. He had presented to the emergency department with concerns of having a heart attack. He has a past medical history of GA in 2016, diabetes mellitus and hypertension. On admission he had elevated bilirubin, AST and ALT which did increase and total bilirubin peaked at 4.4 AST 553 ALT 281 and has steadily decline. On today's evaluation patient states abdominal pain is mostly gone might get a little discomfort in the right upper quadrant but for the most part is gone. Total bilirubin and LFTs continue to trend down with today total bilirubin 1.4 AST 77 ALT 155 and alkaline phosphatase 103. Amylase and lipase was normal on admission as well as hepatitis panel nonreactive. He was noted to have fever during this admission with max temp of 100.3. Currently abdominal pain has improved. He has been afebrile for last 24 to 48 hours. Denies any nausea or vomiting. 06/25/2024 Patient seen and examined today as a follow-up. He is sitting up in the bedside chair. He denies any abdominal pain, no nausea or vomiting. LFTs continue to trend down. MRCP completed yesterday with no evidence of CBD stone. Patient is awaiting recommendations from general surgery. Objective - Vital Signs Vital signs: Vital Signs Temp 98.2 F 06/25/24 07:00 Pulse 70 06/25/24 07:00 Resp 16 06/25/24 07:00 BP 141/81 06/25/24 07:00 Pulse Ox 97 06/25/24 07:00 FiO2 Intake & Output 06/24/24 06/25/24 06/25/24 18:59 06:59 18:59 Intake Total 118 Balance 118 Weight 142.882 kg Intake: Oral 118 Other: Voiding Method Toilet Toilet Toilet # Voids 1 2 # Bowel Movements 1 - Exam General appearance: The patient is alert, oriented, appears in no acute distress. HET: Head is normocephalic and atraumatic. Conjunctiva pink. Sclera anicteric. Neck: Supple without lymphadenopathy. Abdomen: Soft, nontender, nondistended with bowel sounds. No guarding or rigidity. Extremities: Normal skin color and turgor. No pedal edema Skin: No rashes, no jaundice Neurological: No focal deficits. Alert and oriented. - Labs CBC & Chem 7: 06/22/24 05:59 06/25/24 06:44 Labs: Abnormal Lab Results - Last 24 Hours (Table) 06/22/24 06/24/24 06/24/24 Range/Units 12:17 12:03 17:20 POC Glucose (mg/dL) 223 H 233 H (70-110) mg/dL Urine Glucose (UA) (Negative) Urine Ketones (Negative) Urine Blood (Negative) Urine RBC (0-5) /hpf Urine Mucus (None) /hpf IgG1 246.50 L (382.40-928.60) mg/dL 06/24/24 06/25/24 06/25/24 Range/Units 19:50 05:40 07:26 POC Glucose (mg/dL) 272 H 214 H (70-110) mg/dL Urine Glucose (UA) 3+ H (Negative) Urine Ketones 1+ H (Negative) Urine Blood Moderate H (Negative) Urine RBC 36 H (0-5) /hpf Urine Mucus Rare H (None) /hpf IgG1 (382.40-928.60) mg/dL Assessment and Plan (1) Elevated LFTs Narrative/Plan: 39-year-old male presenting with epigastric pain radiating to the right with noted elevated LFTs. Although CT imaging and ultrasound did not report any cholelithiasis, to consider possible microlithiasis as labs are in a cholestatic pattern which continue to trend down however need to consider possibility of passing gallstone. MRCP shows no evidence of bowel stricture, choledocholithiasis, or biliary ductal dilation. Patient again likely passed a micro stone and no indication for any ERCP. Would recommend proceeding with cholecystectomy secondary to fevers, right upper quadrant pain with elevated LFTs suspicious for passing biliary stone. Current Visit: Yes Status: Acute Code(s): R79.89 - OTHER SPECIFIED ABNORMAL FINDINGS OF BLOOD CHEMISTRY SNOMED Code(s): 507183743 (2) Right upper quadrant abdominal pain Current Visit: Yes Status: Acute Code(s): R10.11 - RIGHT UPPER QUADRANT PAIN SNOMED Code(s): 439487667 (3) Fever Current Visit: Yes Status: Acute Code(s): R50.9 - FEVER, UNSPECIFIED SNOMED Code(s): 217512297 Plan: 1. Continue symptomatic supportive care 2. Patient may have low-fat diet 3. There is no indication for ERCP 4. Continue with recommendations from general surgery Thank you for this consultation, we will sign off at this time. Dr. Graham Sandoval I agree with the dictator's note, documented as a scribe by Ely Alexander.
--- NOTE | 2024-06-25 14:29 | P.PN ---
Subjective Progress Note Date: 06/25/24 Principal diagnosis: Reason for follow-up is fever likely cholangitis Patient is a 39-year-old male with a past medical history significant for diabetes mellitus hypertension [place] obesity presenting to the hospital for evaluation of right-sided chest and abdominal pain patient did have elevated liver enzymes concerning for cholangitis MRCP negative for any stone or features of cholecystitis. On today's evaluation that is 06/25/2024, the patient did have resolution of his fever and continues to be afebrile, the patient is on room air and breathing comfortably, the Pt denies having any chest pain or cough, the patient denies having any abdominal pain no vomiting or any diarrhea, mention feeling better. Patient did have a creatinine 0.7 liver isms has improved her urine has been negative no cultures Objective - Vital Signs Vital signs: Vital Signs Temp 98.2 F 06/25/24 07:00 Pulse 70 06/25/24 07:00 Resp 16 06/25/24 07:00 BP 141/81 06/25/24 07:00 Pulse Ox 97 06/25/24 07:00 FiO2 Intake & Output 06/24/24 06/25/24 06/25/24 18:59 06:59 18:59 Intake Total 118 Balance 118 Weight 142.882 kg Intake: Oral 118 Other: Voiding Method Toilet Toilet Toilet # Voids 1 2 2 # Bowel Movements 1 - Exam GENERAL DESCRIPTION: Middle-age male up in bed in no distress RESPIRATORY SYSTEM: Unlabored breathing , decreased breath sounds at bases HEART: S1 S2 regular rate and rhythm , ABDOMEN: Soft , no tenderness EXTREMITIES: No edema feet - Labs CBC & Chem 7: 06/22/24 05:59 06/25/24 06:44 Labs: Abnormal Lab Results - Last 24 Hours (Table) 06/24/24 06/24/24 06/25/24 Range/Units 17:20 19:50 05:40 Anion Gap (4.00-12.00) mmol/L BUN (9.0-27.0) mg/dL BUN/Creatinine Ratio (12.00-20.00) Ratio Glucose (70-110) mg/dL POC Glucose (mg/dL) 233 H 272 H 214 H (70-110) mg/dL AST (14-35) U/L ALT (10-49) U/L Alkaline Phosphatase (41-126) U/L Urine Glucose (UA) (Negative) Urine Ketones (Negative) Urine Blood (Negative) Urine RBC (0-5) /hpf Urine Mucus (None) /hpf 06/25/24 06/25/24 06/25/24 Range/Units 06:44 07:26 12:04 Anion Gap 14.30 H (4.00-12.00) mmol/L BUN 7.8 L (9.0-27.0) mg/dL BUN/Creatinine Ratio 11.14 L (12.00-20.00) Ratio Glucose 217 H (70-110) mg/dL POC Glucose (mg/dL) 253 H (70-110) mg/dL AST 50 H (14-35) U/L ALT 121 H (10-49) U/L Alkaline Phosphatase 128 H (41-126) U/L Urine Glucose (UA) 3+ H (Negative) Urine Ketones 1+ H (Negative) Urine Blood Moderate H (Negative) Urine RBC 36 H (0-5) /hpf Urine Mucus Rare H (None) /hpf Assessment and Plan (1) Cholangitis Current Visit: Yes Status: Acute Code(s): K83.09 - OTHER CHOLANGITIS SNOMED Code(s): 07237849 (2) Elevated LFTs Current Visit: Yes Status: Acute Code(s): R79.89 - OTHER SPECIFIED ABNORMAL FINDINGS OF BLOOD CHEMISTRY SNOMED Code(s): 962718048 (3) Fever Current Visit: Yes Status: Acute Code(s): R50.9 - FEVER, UNSPECIFIED SNOMED Code(s): 458866239 Plan: 1patient presented to hospital with right upper quadrant abdominal as well as right-sided chest pain in this patient who did have a low-grade fever did have elevated white count admission and elevated liver enzymes highly clinic suspicious for cholangitis likely from a possible stone and will need to cover for the enteric gram-negative both aerobes and anaerobes. 2patient with cephalosporin allergy that will limit the number of antibiotics safe to use. 3patient did have resolution of his fever we will continue Zosyn while inpatient transition to oral Augmentin on discharge Dictation was produced using [employer] dictation software. please excuse any grammatical, word or spelling errors. Time with Patient: Less than 30
--- NOTE | 2024-06-25 14:53 | P.DS ---
Providers Date of admission: 06/21/24 08:38 Discharge Diagnosis: Atypical chest pain Transaminitis Hypertension Hyperlipidemia Type 2 diabetes Hospital Course: History of present illness; 39-year-old male with a past medical history of hypertension, diabetes, hyperlipidemia presents with chest pain that started earlier this morning. Patient reports the chest pain was accompanied by intermittent chills, nausea, and shortness of breath. Patient reports he has a history of VT in 2016 but denies having any stent placement. Patient also denies any current use of blood thinners, any history of DVT or PE, any recent prolonged travel, or swelling in his legs or pain in his calves. Patient reports he follows with dental front office assistant Dr. Fermin and was scheduled for an appointment in 2 weeks for stress test and echo. Patient reports the symptoms are similar to when he had his first VT in 2016 with the only difference being that he now also has nausea and abdominal pain which is new for him. Patient reports he takes aspirin 81 mg daily. Initial lab work done in the ER significant for WBC 11.2, hemoglobin 15.2, neutrophils 9.8, APTT 21.2, D-dimer 0.8, sodium 136, potassium 4.5, glucose 202, magnesium 1.5, total bili 1.9, AST 280, ALT 112, troponins less than 0.012, BNP 43. EKG done in the ER showed heart rate of 98, AL interval of 141, QT 339, SNR, no ST segment elevation or depression seen, no T-wave inversions seen. Chest x-ray done in the ER showed no acute cardiopulmonary process. Chest CTA limited by timing of the contrast bolus. A couple small filling defects seen within left upper lobe pulmonary arterial branches for which she cannot be excluded that there are small pu lmonary emboli. No large saddle embolus or central embolus is seen. While in the ED patient received one-time dose of aspirin 325 mg once, 3 doses of nitroglycerin tab 0.4 mg sublingual, and was started on heparin drip IV 6.999 units/kg/h. Patient admitted to internal medicine service. 06/22/2024: Patient seen at bedside. No significant overnight events. Patient reports he is feeling better than yesterday, has some intermittent right upper quadrant pain that comes and goes, sharp in nature. 06/23. Patient seen and examined.Duplex ultrasound lower extremities negative for DVT. CT abdomen pelvis done showed hepatic steatosis, no evidence for acute abdominal process. Duplex ultrasound for portal vein negative for portal vein thrombosis. Patient low-grade fevers overnight. LFTs have improved. 06/24: MRCP showed no evidence to suggest ductal stricture, choledocholithiasis or biliary duct dilatation. Pancreatic head 15 x 7 mm cystic lesion possibly representing sequela of prior pancreatitis versus sidebranch intraductal mucinous neoplasm versus other cystic neoplasms. 06/25: Patient seen at bedside. No overnight events or acute complaints. Patient will follow-up with PCP and GI specialist within the next week. Patient is also to follow-up with hepatobiliary specialist either out of [facility] or Dr. Wong Garcia out of [place] for pancreatic head cystic lesi on/mass. Patient will continue to finish his antibiotic course with Augmentin 875-125 mg PO BID for 3 days. Vital signs reviewed and stable. Physical Exam: General: Obese, non toxic, no distress, appears at stated age, normal weight Derm: no unusual rashes/lesions, warm Head: atraumatic, normocephalic, symmetric Eyes: EOMI, scleral icterus seen ENT: Nose and ears atraumatic Neck: No cervical lymphadenopathy, trachea midline, supple Mouth: no lip lesion, mucus membranes moist Cardiovascular: S1S2 reg, no murmur, positive dorsalis pedis pulse bilateral, no edema Lungs: Decreased air entry bilaterally, no rhonchi, no rales, no accessory muscle use Abdominal: soft, nontender to palpation, no guarding Ext: muscle strength 5 out of 5 in all 4 extremities grossly, no gross muscle atrophy, no contractures, Neuro: CN II-XI grossly intact, no gross focal neuro deficits Psych: Alert, oriented, appropriate affect A total of 35 minutes of time were spent preparing this complex discharge summary. Patient was discharge on June 25, 2024 at 14:12 Attestation I have seen and examined this patient with my resident , discussed the same with the resident/YAQUELIN, and agree with the dictator's assessment and plan as written Dr. Trav crawford . Expected date of discharge: 06/25/24 Attending physician: Sandra Navarro MD Consults: 06/21/24 09:35 Consult Physician Routine Consulting Provider: En Triplett Consult Reason/Comments: chest pain, hx of VT 2016 Do you want consulting provider notified?: Yes, Notify in am 10/05/24 11:26 Consult Physician Routine Consulting Provider: Forrest Batres Consult Reason/Comments: Right upper quadrant paint Do you want consulting provider notified?: Yes 06/23/24 13:42 Consult Physician Routine Consulting Provider: Liborio Solo Consult Reason/Comments: Cholangitis, fevers Do you want consulting provider notified?: Yes 06/24/24 09:17 Consult Physician Urgent Consulting Provider: Lydia Sandoval Consult Reason/Comments: elevated lft, suspect choledocholithiasis Do you want consulting provider notified?: Yes Primary care physician: Torrey Lester Patient Condition at Discharge: Stable Plan - Discharge Summary Discharge Rx Participant: No New Discharge Prescriptions: New Amoxic-Pot Clav 875-125Mg [Augmentin 875-125] 1 tab PO BID 3 Days #6 tab Continue Isosorbide Mononitrate ER [Imdur] 30 mg PO DAILY #30 tab.er.24h Metoprolol Tartrate [Lopressor] 25 mg PO BID #60 tab lisinopriL [Zestril] 10 mg PO DAILY Atorvastatin [Lipitor] 40 mg PO DAILY Insulin Glargine,Hum.rec.anlog [Toujeo Max Solostar] 16 units SQ QAM metFORMIN HCL [Glucophage] 500 mg PO TID glipiZIDE [glipiZIDE ER] 10 mg PO BID Fenofibrate [Lofibra] 160 mg PO DAILY Discharge Medication List Isosorbide Mononitrate ER [Imdur] 30 mg PO DAILY #30 tab.er.24h 01/05/16 [Rx] Metoprolol Tartrate [Lopressor] 25 mg PO BID #60 tab 01/05/16 [Rx] Atorvastatin [Lipitor] 40 mg PO DAILY 06/21/24 [History] Fenofibrate [Lofibra] 160 mg PO DAILY 06/21/24 [History] Insulin Glargine,Hum.rec.anlog [Toujeo Max Solostar] 16 units SQ QAM 06/21/24 [History] glipiZIDE [glipiZIDE ER] 10 mg PO BID 06/21/24 [History] lisinopriL [Zestril] 10 mg PO DAILY 06/21/24 [History] metFORMIN HCL [Glucophage] 500 mg PO TID 06/21/24 [History] Amoxic-Pot Clav 875-125Mg [Augmentin 875-125] 1 tab PO BID 3 Days #6 tab 06/25/24 [Rx] Follow up Appointment(s)/Referral(s): Lydia Sandoval MD [STAFF PHYSICIAN] - 1 Week Torrey Lester DO [Primary Care Provider] - 1-2 days Activity/Diet/Wound Care/Special Instructions: Patient to follow-up with a Hepatobiliary specialist either out of [facility] or a Dr. Wong Garcia out of [place] for the pancreatic head cystic lesion/mass Discharge Disposition: HOME SELF-CARE
== END 2024-06-25 14:55 | disposition home or self-care (01) ==
LOC: EC 06:09 → 6NMEDSUR 08:38
PROVIDERS: ADMIT Internal Medicine; ATTEND Internal Medicine
DX: R07.89 Other chest pain (principal); R74.01 Elevation of levels of liver transaminase levels; K83.09 Other cholangitis; R50.9 Fever, unspecified; K76.0 Fatty (change of) liver, not elsewhere classified; I10 Essential (primary) hypertension; E78.5 Hyperlipidemia, unspecified; E11.9 Type 2 diabetes mellitus without complications; I25.10 Atherosclerotic heart disease of native coronary artery without angina pectoris; I25.2 Old myocardial infarction; E66.01 Morbid (severe) obesity due to excess calories; Z68.41 Body mass index [BMI] 40.0-44.9, adult; Z79.4 Long term (current) use of insulin; Z79.82 Long term (current) use of aspirin; Z79.84 Long term (current) use of oral hypoglycemic drugs; Z79.899 Other long term (current) drug therapy; Z88.1 Allergy status to other antibiotic agents; Z82.49 Family history of ischemic heart disease and other diseases of the circulatory system
CPT/HCPCS: 96376 ×5; 96361; 96365 ×2; 96366 ×4; 96367 ×2; 96375 ×2; 99285; 36415; 93005; 93306; 85379; 83880; 80053 ×5; 80074; 82140; 82150; 82525; 82550; 82977; 83540; 83550; 83605; 83690; 83735; 84484; 85025 ×2; 85610 ×3; 85730 ×2; 86431; 81001; 82787; 86038; 83036; 71046; 93976; 76700; 93970; 71275; 74177; 74181; G0378 ×5; J2543 ×3; J2405; Q9957; J1644 ×4; J3475; Q9967 ×2; J2470 ×4

== ENCOUNTER → 2024-07-05 | Outpatient (CLI) | payer OTHER ==
[2024-07-05 15:33] LABS: ALT 42 U/L (10-49); AST 32 U/L (14-35); Albumin 4.4 g/dL (3.8-4.9); Alkaline Phosphatase 73 U/L (41-126); BUN/Creat Ratio 13.12 Ratio (12.00-20.00); Blood Urea Nitrogen 10.5 mg/dL (9.0-27.0); Calcium 9.7 mg/dL (8.7-10.3); Carbon Dioxide 24.5 mmol/L (21.6-31.8); Chloride 103 mmol/L (96-109); Globulin 2.1 g/dL (1.6-3.3); Glucose 179 mg/dL (70-110); Potassium 5.1 mmol/L (3.5-5.5); Sodium 140 mmol/L (135-145); Total Bilirubin 0.7 mg/dL (0.3-1.2); Total Protein 6.5 g/dL (6.2-8.2)
== END | disposition home or self-care (01) ==
LOC: LABWHC1 09:47
PROVIDERS: ATTEND Nurse Practitioner Family
DX: R17 Unspecified jaundice (principal)
CPT/HCPCS: 36415; 80053